=== PATIENT | male | born 1940 | race Caucasian/White ===

== ENCOUNTER → 2017-02-08 | Outpatient (CLI) | payer OTHER ==
[~2017-02-08] MED LIST: ASPEC325 PO; BNV150 PO; CLTP PO; CRS10 PO; EZET10TA63 PO; LRT5 PO; OMEG10007 PO
--- NOTE | 2017-02-09 07:22 | PAP/PSG TECHNICIAN REPORT ---
[facility] Consultant Polysomnogram Report Study name: None Report date: 02/09/2017 Study date: 02/08/2017 Referring Physician: Dr. Sosa Gr Name: BJ FIELD Interpreting Physician: Cris Ayala M.D. Date of : 1940 [facility] Consultant: Sue Willard, PSGT. Sex: Male Age: 76 StudyType: PSG Weight: 220 lbs Height: 76 years, Height 5' 11" Neck Circum:16.5 inches BMI: 30.68 Medications: CARAFATE 1 GM, NEXIUM 40 MG, PARALUENT 75 MG INJECTION, ASPIRIN 81 MG, CALCIUM CARBONATE , VIT-D, COENZYME Q10, MULTIVITAMINS, OMEGA-3 ACIDS, ZETIA10 MG. Patient History 76 YR. OLD MALE IN ROOM 5, PRESENTS TO THE SLEEP LAB FOR A SPLIT NIGHT STUDY. PT. STATES THAT HE HAS ACID REFLUX TO THE POINT OF BURNING IN HIS NECK AND THE ROOF OF HIS MOUTH. DENIST ALSO STATED THAT HE NOTED PAUSES DURING BREATHING.PT. ALSO, SNORES. ESS= 7, NECK =16.5 INCHES Parameters Monitored NPSG: E1-M2, E2-M1, Fp1-M2, Fp2-M1, F3-M2, F4-M2, F4-M1, C3-M2, C4-M2, C4-M1, O1-M2, O2-M2, O2-M1, T3-M2, T4-M1, P3-M2, P4-M1, CHIN1, CHIN2, HR, EKG, Legs, PFLOW, SNOR, FLOW, CFLOW, Tidal Volume, THOR, ABDO, SpO2, PLTH, CPRESS, ETCO2 Wave, ETCO2, pH Sleep Architecture Sleep Stages Time at Lights Off 10:55:32 PM STAGES Time (min.) TST (%) Time at Lights On 5:24:32 AM Wake 101.5 -- Total Recording Time (TRT) 390.00 min. N1 12.0 4 Total Sleep Period (TSP) 334.0 min. N2 223.0 78 Total Sleep Time (TST) 287.5min. N3 0.0 0 Awake Time 101.5 min. REM 52.5 18 Wake after Sleep Onset 46.5 min. Sleep Efficiency (SE) 74 % Sleep Onset Latency (LUIS DANIEL) 55.0 min. Number of Stage 1 Shifts None Awakenings 10 Stage Changes 37 Number of REM periods 4 REM 52.5 18 REM Latency 58.0 min. NREM 235.0 82 Body Position Analysis Supine Right Left Side Prone Vertical Total Sleep Time (min.) 213.9 60.0 64.0 124.00 0.0 2.5 Total Sleep Time (%) 57% 21% 22% 43 0% N/A% Total Sleep Time REM (min.) 34.0 13.5 5.0 None 0.0 0.0 Total Sleep Time NREM (min.) 129.5 46.5 59.0 None 0.0 0.0 Intermittent Wake (min.) 50.4 16.1 32.4 None 0.0 2.5 Total Sleep Period (%) 53% None None None None None Arousals Myoclonus (PLM) * Events Count Index Events Count Index Spontaneous 12 3 Events Awake (PLMW) 5 3.0 Respiratory 6 1.3 Events Asleep w/ Arousal (PLMA) 3 0.6 PLM 3 1 Events Asleep w/o Arousal (PLMS) 98 20.5 Snoring 12 3 Total Asleep 101 21.1 Total 33 7 Total 106 16 Respiratory Analysis * CA OA MA CH H RERA Total Count 5 3 1 0 29 9 38 Index 1.0 0.6 0.2 0 6.1 2 9.8 Mean Duration 21.4 16.9 18.8 0.00 23.5 15.5 21.2 Longest Duration 23.8 19.0 18.8 0.00 18.8 34.6 58.4 Respiratory Event Summary Total Supine ~Supine Right Left Prone REM NREM Apneas Count 9 8 1 0 1 N/A 0 9 Index 1.9 3 0 0.0 0.9 N/A 0 2 Hypopneas (4% Desat) Count 29 19 10 3 7 N/A 4 25 Index 6.1 7.0 5 3.0 6.6 N/A 4.6 6.4 Apneas & All Hypopneas Count 38 27 11 3 8 N/A 4 34 Index 7.9 10 5 3 8 N/A 4.6 8.7 Respiratory Events (Rn Complex Care+All Hyp+RERA) Count 38 34 13 3 10 N/A 4 34 Index 9.8 12 6 3.0 9.4 N/A 5.7 10.7 Respiratory Related Arousal Count 6 34 0 0 0 N/A 0 6 Index 1.3 2 0 0 0 N/A 0 2 Snoring Analysis Supine Right Left Prone REM NREM Total Snore duration 41.0 min Snores count 824 65 475 N/A 79 1,285 1,364 Snore mean duration 1.8 Sec Snores index 302 65 445 N/A 90.3 328.1 284.7 TST with snoring (%) 14.3% Desaturation Event Summary: Minimum %SpO2 Event Count Mean/Min/Max Duration(sec.) Desaturation Index % Time In Bed > 90 46 25.7 / 5.0 / 58.0 7.4 98.3 86 - 90 1 18.5 / 18.5 / 18.5 9.9 1.6 81 - 85 0 N/A 0.0 0.0 76 - 80 0 N/A 0.0 0.0 71 - 75 0 N/A 0.0 0.0 66 - 70 0 N/A 0.0 0.0 61 - 65 0 N/A 0.0 0.0 56 - 60 0 N/A 0.0 0.0 51 - 55 0 N/A 0.0 0.0 < 50 0 N/A 0.0 0.0 Total REM NREM Awake <50% 0.0 min. 0.0 min. 0.0 min. 0.0 min. 51 - 60% 0.0 min. 0.0 min. 0.0 min. 0.0 min. 61 - 70% 0.0 min. 0.0 min. 0.0 min. 0.0 min. 71 - 80% 0.2 min. 0.0 min. 0.0 min. 0.2 min. 81 - 90% 6.1 min. 1.8 min. 3.8 min. 0.5 min. 91 - 100% 372.3 min. 50.6 min. 229.9 min. 91.8 min. Average 93 93 93 94 Minimum SpO2 75 88 85 75 Desaturation Event Index 7.1 4.6 10.7 0.0 # Desat. Events below 89% 8 1 7 0 Time(%) with Saturation below 89% 0.4 0.0 0.2 0.1 Time(min.) with Saturation below 89% 1.4 0.2 0.8 0.4 Time (mins) REM (mins) NREM (mins) % of TST SpO2 Below 90% 23 2 N21 1.1 SpO2 Below 88% 2 0 0 0 Heart Rate Analysis Min (bpm) Max (bpm) Average (bpm) Awake 52 127 59 NREM 50 72 56 REM 49 70 56 Overall 49 72 56 Supplemental O2 Values Minimum O2 level: None Value Start Time End Time [facility] Consultant Comments PSG Study slept in the right, left, and supine positions. No cardiac arrhythmia or PLM's noted. No bruxism noted. Snoring was noted and scored as a 4 on a scale of 1 through 5. (0=no snoring, 5=snoring loud enough to be heard through a closed door or down the marie way) awoke to use the restroom one time during the night. stated, I did not sleep as well as I do when I am in my own bed. The final report will be interpreted and signed by a sleep physician. The completed physician report will then be placed in the patient medical record. Therapy (cm H2O) 0 TIB (min.) 389.0 TST (min.) 287.5 Sleep Onset (min.) 55.0 REM Onset From Sleep (min.) 58.0 Sleep Efficiency % 74 Wakefulness (%) 26 Wakefulness (min.) 101.5 NREM 1 (%) 4 NREM 1 (min.) 12.0 NREM 2 (%) 78 NREM 2 (min.) 223.0 NREM 3 (%) 0 NREM 3 (min.) 0.0 REM (%) 18 REM (min.) 52.5 # Arousals 33 Arousal Index 7 # Snore 1,364 Snore Index 284.7 AHI 7.9 AHI Supine 10 AHI Non-Supine 5 NREM AHI 8.7 REM AHI 4.6 RDI 9.8 # Obstructive Apnea 3 # Central Apnea 5 # Mixed Apnea 1 # Hypopneas 29 RERAs 9 Total Respiratory Events 47 Time Below SpO2 89% (min.) 1.0 Mean NREM SpO2 (%) 93 Mean REM SpO2 (%) 93 Mean Sleep SpO2 (%) 93 Min NREM SpO2 (%) 85 Min REM SpO2 (%) 88 Position Supine (min.) 213.9 Position Non-supine (min.) 124.0 LM Index Sleep 21.1 LM Index NREM 20.7 LM Index REM 22.9 Mean Heart Rate (bpm) 56 Min Heart Rate (bpm) 49
--- NOTE | 2017-02-18 07:51 | POLYSOMNOGRAPH REPORT ---
REFERRING PERSON: Dr. Aurea Ayala. BUTTONHOLE MACHINE OPERATOR: Val Willard. Mr. Peters is a 76-year-old male who presents to the sleep lab for a split night sleep study. He has a history of acid reflux and witnessed apneas. His [place] Sleepiness Scale score on the evening of this study is 7. BMI is 30.68. Following the technical and digital specifications of the [place] [employer] (AASM) a standard diagnostic polysomnogram was performed monitoring EEG, EOG, EMG (chin and leg deviations), oxygen saturation, body position, digital video, respiratory effort and airflow. The sleep Stage and event scoring was based on the AASM Manual for the Scoring of Sleep and Associated Events 2007 edition. Apneas are defined as a drop in the peak thermal sensor excursion by >90% of baseline for at least 10 seconds. Hypopneas were scored using the 4% oxygen desaturation rule (4A-[employer]) and a decrease in the nasal pressure excursions by >30% of baseline for at least 10 seconds. Respiratory effort-related arousal (RERA's) is defined as a sequence of breaths lasting at least 10 seconds characterized by increasing respiratory effort or flattening of the nasal pressure waveform leading to an arousal from sleep when the sequence of breaths does not meet criteria for an apnea or hypopnea. Apnea Hypopnea index (AHI) is defined as the number of apneas and hypopneas occurring in an hour of sleep. Respiratory disturbance index (RDI) is defined as the number of apneas, hypopneas, and RERA's occurring in an hour of sleep. Mr. Graces total sleep period time was 334 minutes. Total sleep time was 387.5 minutes. Sleep efficiency was 74%. Latency to sleep onset was 55 minutes with wake after sleep onset of 46.5 minutes. Total non-REM sleep time was 235 minutes. He spent 4% of that time in N1 sleep, 78% in N2 sleep, and no time in N3 sleep. REM latency was short at 58 minutes. Total REM sleep time was 52.5 minutes or 18% of total sleep time. There were 33 cortical arousals from sleep. Twelve of these arousals were spontaneous, 6 were due to respiratory events, 3 due to periodic limb movements of sleep, and 12 were due to snoring. There were 101 periodic limb movements. Limb movement index was 21.1. Limb movement with arousal index was 0.6. On this sleep study, Mr. Peters had 5 central apneas, 3 obstructive apneas, 1 mixed apnea and 29 hypopnea which appeared to be obstructive. Apnea-hypopnea index was 7.9 consistent with mild sleep apnea. The supine AHI was 10, REM AHI was 4.6. There were 1364 snoring events. Total sleep time with snoring was for 14.3%. Mean saturation was 93 with desaturations less than 89% for only 1.4 minutes of recorded time. There was no cardiac ectopy noted on this study. Heart rates during sleep ranged from a low of 49 beats per minute to a high of 72 beats per minute. IMPRESSION AND PLAN: 76-year-old male with evidence of mild sleep apnea without nocturnal hypoxemia on this sleep study. 1. This patient would likely benefit from positive airway pressure therapy. He should return to the sleep lab for a full night titration and then based on those results be started on equipment at home. A download from his machine can be reviewed in 1 month both to check compliance as well as AHI and further pressure adjustments can occur at that time. 2. Alternatively, this patient could be started on auto titrating CPAP with pressures of 5-15 cm. A download from his machine can be reviewed in 1 month and a set to optimal pressure at that time. 3. Should this patient be unwilling or unable to tolerate CPAP therapy, he should be referred to ear, nose and throat or oral surgery/dental medicine (if appropriate) to discuss alternative treatments for sleep disordered breathing.
== END | disposition home or self-care (01) ==
LOC: C.NEUR 21:00
PROVIDERS: ATTEND Family Medicine
DX: R06.81 Apnea, not elsewhere classified (principal); R06.83 Snoring; G47.10 Hypersomnia, unspecified

== ENCOUNTER → 2017-02-16 | Outpatient (CLI) | payer OTHER ==
--- NOTE | 2017-02-16 10:35 | DIAGNOSTIC IMAGING REPORT ---
DOUBLE CONTRAST UPPER GI SERIES AND SMALL BOWEL FOLLOW-THROUGH CLINICAL HISTORY: Generalized abdominal pain. Heartburn. COMPARISON STUDY: No priors. TECHNIQUE: An abdominal cathead operator radiograph was performed. A standard air contrast upper GI series was then performed. Spot images of the esophagus and stomach were obtained in multiple obliquities with upright and prone. The patient then consumed several of thin barium and a small follow-through was performed. Overhead radiographs and spot compression images were obtained. FINDINGS: The patient swallowed barium without difficulty. The esophagus is structurally normal without evidence of intrinsic or extrinsic mass. The esophageal mucosal pattern is normal. No gastroesophageal reflux was elicited by having the patient performed a Valsalva maneuver. The gastroesophageal junction distends normally. The stomach is normal in configuration and demonstrates normal distensibility. No mass or ulceration is identified. Mild rugal thickening is questioned. The duodenal bulb and sweep are unremarkable. The abdominal cathead operator radiograph shows a nonobstructed abdominal bowel gas pattern. No evidence of intraperitoneal free air is seen. There are no abnormal abdominal calcifications skeletal structures are osteopenic. Mild lumbosacral spondylosis is observed. On the small bowel follow-through, there is normal transit time with contrast identified in the colon at 65 minutes. The small bowel mucosal pattern is normal. There is no evidence of stricture or mass. The distal/terminal ileum are normal in appearance on the spot compression views. Fluoroscopy time: 2.6 minutes. Fluoroscopic images: 18 IMPRESSION: 1. Question mild gastric fold thickening. Correlate clinically for evidence of gastritis. 2. Otherwise unremarkable fluoroscopic upper GI assessment. 3. Normal small bowel follow-through. Electronically signed by: Ramin Baird M.D. 02/16/2017 10:34 AM Dictated Date/Time: 02/16/2017 10:30 AM
== END | disposition home or self-care (01) ==
LOC: C.RAD 08:49
PROVIDERS: ATTEND Family Medicine
DX: R10.13 Epigastric pain (principal)

== ENCOUNTER 2019-03-11 20:16 | Inpatient (IN) ==
[2019-03-11] MEDS ORDERED: HYDROmorphone INJ 0.5 MG/0.5 ML SYR IV STA ×2 (20:36→22:57)
[2019-03-11] MEDS ORDERED: ONDANSETRON INJ 2 MG/ML 2 ML VIAL IV STA (20:38)
[2019-03-11] MEDS ORDERED: SODIUM CHLORIDE 0.9% 500 ML IV SCH (20:45)
[2019-03-11] MEDS: SODIUM CHLORIDE 0.9% 1000ML 1,000 ML IV SCH (21:00)
[2019-03-11 21:13] LABS: Basophils # (auto) 0.01 K/uL (0-0.2); Basophils % (auto) 0.1 %; Eosinophils # (auto) 0.03 K/uL (0-0.5); Eosinophils % (auto) 0.4 %; Hematocrit (blood only) 42.9 % (42-52); Hemoglobin 14.6 g/dL (14.0-18.0); Immature Granulocytes # (auto) 0.01 K/uL (0.00-0.02); Immature Granulocytes % (auto) 0.1 %; Lymphocytes # (auto) 1.61 K/uL (1.2-3.4); Lymphocytes % (auto) 20.2 %; Mean Corpuscular Volume 90.5 fL (80-100); Mean Platelet Volume 10.1 fL (7.4-10.4); Monocytes # (auto) 0.62 K/uL (0.11-0.59); Monocytes % (auto) 7.8 %; Neutrophils # (auto) 5.71 K/uL (1.4-6.5); Neutrophils % (auto) 71.4 %; Platelet Count 216 K/uL (130-400); RDW Coefficient of Variation 13.7 % (11.5-14.5); RDW Standard Deviation 45.4 fL (36.4-46.3); Red Blood Count 4.74 M/uL (4.7-6.1); White Blood Count 7.99 K/uL (4.8-10.8)
[2019-03-11 21:22] LABS: Prothrombin Time 10.7 Seconds (9.0-12.0)
--- NOTE | 2019-03-11 21:49 | Ultrasound Report ---
ABDOMINAL ULTRASOUND, RIGHT UPPER QUADRANT HISTORY: RUQ pain, jaundice. COMPARISON: None. FINDINGS: Pancreas: Obscured by overlying bowel gas. Liver: The liver is echogenic consistent with fatty change. Gallbladder: Completely filled with gallstones. Mild gallbladder wall thickening measuring 4 mm. No p ericholecystic fluid. CBD: 7 mm in diameter. This is normal given the patient's age. Right kidney: No hydronephrosis. IMPRESSION: The gallbladder is completely filled gallstones and there is mild gallbladder wall thickening. This r aises the possibility of developing acute cholecystitis. Electronically signed by: Anthony Rivera M.D. 03/11/2019 9:47 PM
[2019-03-11 22:07] LABS: Albumin Level 3.9 gm/dl (3.4-5.0); BUN Creatinine Ratio 10.3 (10-20); Bilirubin,Total 6.3 mg/dl (0.2-1); Calcium 9.4 mg/dl (8.5-10.1); Creatinine Clr Calc Pharmacy 63.8 ml/min; Est GFR (African American) 69.3; Est GFR (Non-African American) 59.8; Globulin 3.9 gm/dl (2.5-4.0); Total Protein 7.8 gm/dl (6.4-8.2)
[2019-03-11] MEDS ORDERED: PIPERACILLIN/TAZOBACTAM 4.5 GM/120 ML BAG IV ONE (22:10)
[2019-03-11] MEDS ORDERED: PIPERACILL/TAZOBAC CONSULT ACTIVE PRN (22:10)
[2019-03-11] MEDS ORDERED: IOVERSOL 100ml IV PRN (22:34)
--- NOTE | 2019-03-11 22:51 | CT Scan Report ---
ABDOMEN AND PELVIS CT WITH IV CONTRAST CT DOSE: 660.01 mGy.cm HISTORY: epigastric pain TECHNIQUE: Multiaxial CT images of the abdomen and pelvis were performed following the use of intrave nous contrast. A dose lowering technique was utilized adhering to the principles of ALARA. COMPARISON STUDY: Abdominal ultrasound 03/11/2019. FINDINGS: Calcified right hilar lymph nodes. Calcified granuloma within the lingula. Mild dependent c hanges seen at the lung bases. No pneumoperitoneum. No pneumatosis. No suspicious lytic or blastic os seous lesions. A 5 mm hypodense lesion within the left hepatic lobe. This is too small to characteriz e. The main portal vein is patent. Mild central intrahepatic bile duct dilatation. The spleen is unre markable. Normal adrenal glands and pancreas. A 3 cm cyst within the upper pole of the left kidney. T here is also a 1 cm hypodense lesion within the left kidney. This also favors a cyst. No hydronephros is. A left circumaortic renal vein. No retroperitoneal lymphadenopathy. Normal bladder. No bowel wall thickening or obstruction. Normal appendix. No retroperitoneal lymphadenopathy. Mild inflammatory ch trung surrounding the gallbladder and common bile duct. There is mild enhancement within the wall of t he cystic duct. Multiple stones within the gallbladder. There is also a stone within the ampulla best seen on image 191. This measures 4 mm. The common bile duct is at the upper limits of normal for age measuring 7 mm. The cystic duct is mildly distended. The mass of the stone within the cystic duct. H owever, this is difficult to assess due to the motion artifact at this location. IMPRESSION: 1. Multiple gallstones with mild inflammatory change surrounding the gallbladder and common bile duct . This is consistent with acute cholecystitis. 2. There is a 4 mm stone within the ampulla likely resulting in the mild intrahepatic bile duct dilat ation. 3. There is mild enhancement versus small stones within the cystic duct. 4. No bowel wall thickening or obstruction. 5. Normal appendix. Electronically signed by: Anthony Rivera M.D. 03/11/2019 10:48 PM
--- NOTE | 2019-03-11 23:36 | Emergency Department Note ---
Entered by Ramin Teran acting as a scribe for Paris Cedeño MD History of Present Illness General Chief complaint: Abdominal Pain Stated complaint: ABDOMINAL PAIN, CRAMPING, BLOATING Source: patient History of Present Illness Provider complaint: Abdominal pain Onset (ago): day(s) 2 Location: abdomen Maximum Pain Intensity: 8 Current Pain Intensity: 8 Associated symptoms: + denies other symptoms (weight loss, vomiting, and diarrhea) and + other (nausea and gas) The patient is a 78 year old male who presents to the Emergency Room with complaints of abdominal pain that began 2 days ago. The patient states he has nausea and has a lot of gas. He notes that at that time, he was able to get it to go away by drinking tea. 1 day ago, he states these symptoms returned and were really bad and would not subside. He rates his overall pain as an 8/10 and adds that the pain is all over his stomach and radiates into his chest. The patient also complains of dark urine but reports not drinking a lot of fluids lately. The patient denies weight loss, vomiting, and diarrhea. The patient also notes that he does not have kidney problems and has no history of abdominal surgeries. Home Medications Home Medications Medication Instructions Recorded Confirmed Type alirocumab [Praluent Pen] 0 mg SUBCUT DIRECTED 03/11/19 03/11/19 History aspirin [Aspirin Low Dose] 81 mg PO DAILY 03/11/19 03/11/19 History calcium carbonate [Calcium 500] 500 mg PO BID 03/11/19 03/11/19 History cholecalciferol (vitamin D3) 1,000 unit PO DAILY 03/11/19 03/11/19 History [Vitamin D3] coenzyme Q10 [Co Q-10] 200 mg PO DAILY 03/11/19 03/11/19 History ezetimibe 10 mg PO DAILY 03/11/19 03/11/19 History multivitamin 1 tab PO DAILY 03/11/19 03/11/19 History pantoprazole 20 mg PO DAILY 03/11/19 03/11/19 History ranitidine HCl 150 mg PO DAILY 03/11/19 03/11/19 History rosuvastatin [Crestor] 10 mg PO Q OTHER DAY 03/11/19 03/11/19 History Allergies Allergy/AdvReac Type Severity Reaction Status Date / Time niacin Allergy Mild LUMPS ALL Verified 03/11/19 21:23 OVER WITH HIGH DOSES Lapkqii-Xaw-Bws Reductase Allergy Unknown MUSCLE Verified 03/11/19 21:23 Inhibitor ACHES WHEN TAKING FOR LONG TIME Past Med/Surg History Medical History BPH (benign prostatic hyperplasia) Dyslipidemia GERD (gastroesophageal reflux disease) IFG (impaired fasting glucose) ELIEL (obstructive sleep apnea) Surgical History Hx of tonsillectomy Social History Preferred Language: [place] Communication Ability: Effective [employer]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 and A total of 10 systems reviewed and were otherwise negative Physical Exam Vital Signs Vital Signs - 24 hr 03/12/19 01:46 03/12/19 08:50 03/12/19 15:10 Temperature 36.7 C 36.9 C Temperature Source Oral Oral Pulse Rate 62 Pulse Rate [Apical] Pulse Rate [Finger] 59 L 76 Pulse Rate [Right Finger] Pulse Rhythm [Apical] Pulse Rhythm [Finger] Regular Regular Pulse Strength [Apical] Pulse Strength [Finger] Normal Normal Respiratory Rate 16 18 Respiratory Effort / Characteristics Non-Labored Spontaneous Non-Labored Respiratory Depth Normal Normal Respiratory Pattern Regular Regular Blood Pressure [Left Arm] 149/79 H 160/83 H Blood Pressure [Right Arm] Blood Pressure Mean [Left Arm] 102 108 Blood Pressure Mean [Right Arm] Blood Pressure Position [Left Arm] Sitting Semi-fowlers Blood Pressure Position [Right Arm] Pulse Oximetry 97 98 Oxygen Delivery Method Room Air Room Air Oxygen Flow Rate 03/12/19 17:01 03/12/19 17:10 03/12/19 17:20 Temperature 36.5 C Temperature Source Temporal Artery Scan Pulse Rate Pulse Rate [Apical] 67 60 59 L Pulse Rate [Finger] Pulse Rate [Right Finger] Pulse Rhythm [Apical] Regular Regular Regular Pulse Rhythm [Finger] Pulse Strength [Apical] Pulse Strength [Finger] Respiratory Rate 16 17 14 Respiratory Effort / Characteristics Non-Labored Spontaneous Non-Labored Spontaneous Non-Labored Spontaneous Respiratory Depth Normal Normal Normal Respiratory Pattern Regular Regular Regular Blood Pressure [Left Arm] 160/91 H 172/79 H 161/82 H Blood Pressure [Right Arm] Blood Pressure Mean [Left Arm] 114 110 108 Blood Pressure Mean [Right Arm] Blood Pressure Position [Left Arm] Lying Lying Lying Blood Pressure Position [Right Arm] Pulse Oximetry 97 100 100 Oxygen Delivery Method Oxymask Oxymask Oxymask Oxygen Flow Rate 10 10 10 03/12/19 17:30 03/12/19 17:40 03/12/19 18:00 Temperature 36.3 C L 36.6 C Temperature Source Temporal Artery Scan Oral Pulse Rate Pulse Rate [Apical] 56 L 58 L 54 L Pulse Rate [Finger] Pulse Rate [Right Finger] Pulse Rhythm [Apical] Regular Regular Pulse Rhythm [Finger] Pulse Strength [Apical] Pulse Strength [Finger] Respiratory Rate 21 18 20 Respiratory Effort / Characteristics Non-Labored Spontaneous Non-Labored Spontaneous Respiratory Depth Normal Normal Respiratory Pattern Regular Regular Blood Pressure [Left Arm] 170/78 H 152/87 H Blood Pressure [Right Arm] 155/52 H Blood Pressure Mean [Left Arm] 108 108 Blood Pressure Mean [Right Arm] 86 Blood Pressure Position [Left Arm] Lying Lying Blood Pressure Position [Right Arm] Lying Pulse Oximetry 97 97 96 Oxygen Delivery Method Room Air Room Air Room Air Oxygen Flow Rate 03/12/19 18:38 03/12/19 19:22 03/12/19 19:30 Temperature 36.5 C 36.4 C L 36.5 C Temperature Source Oral Oral Oral Pulse Rate Pulse Rate [Apical] 55 L 84 55 L Pulse Rate [Finger] Pulse Rate [Right Finger] Pulse Rhythm [Apical] Regular Pulse Rhythm [Finger] Pulse Strength [Apical] Normal Pulse Strength [Finger] Respiratory Rate 17 18 20 Respiratory Effort / Characteristics Non-Labored Respiratory Depth Normal Respiratory Pattern Regular Blood Pressure [Left Arm] 181/73 H Blood Pressure [Right Arm] 165/80 H 165/80 H Blood Pressure Mean [Left Arm] 109 Blood Pressure Mean [Right Arm] 108 108 Blood Pressure Position [Left Arm] Lying Blood Pressure Position [Right Arm] Lying Pulse Oximetry 98 92 98 Oxygen Delivery Method Room Air Room Air Oxygen Flow Rate 03/12/19 20:00 03/12/19 20:43 03/13/19 00:00 Temperature 36.6 C 36.5 C Temperature Source Oral Oral Pulse Rate 68 Pulse Rate [Apical] 67 Pulse Rate [Finger] Pulse Rate [Right Finger] 58 L Pulse Rhythm [Apical] Pulse Rhythm [Finger] Pulse Strength [Apical] Pulse Strength [Finger] Respiratory Rate 20 20 Respiratory Effort / Characteristics Respiratory Depth Respiratory Pattern Blood Pressure [Left Arm] 166/75 H Blood Pressure [Right Arm] 160/58 H Blood Pressure Mean [Left Arm] 105 Blood Pressure Mean [Right Arm] 92 Blood Pressure Position [Left Arm] Lying Blood Pressure Position [Right Arm] Pulse Oximetry 98 96 Oxygen Delivery Method Room Air Oxygen Flow Rate Vital signs reviewed. General: Well-appearing elderly male, in no significant distress. HEENT:Sscleral icterus, PERRLA, neck supple. Atraumatic. Cardiovascular: Regular rate and rhythm, no extra sounds. Pulmonary: Clear to auscultation bilaterally, normal work of breathing. Abdomen: Soft, nondistended, positive bowel sounds. Tenderness to palpation to the epigastric region. Musculoskeletal: Atraumatic, no peripheral edema. Neurologic: Patient awake alert and oriented x 3, full strength in all 4 extremities. Cranial nerves 2 through 12 grossly intact. Skin: Warm, dry, no rash. Jaundiced. Course 2033: The patient was evaluated in room C11. A complete history and physical exam was performed. 2210: The patient is going for a CT. 2310:I updated the patient about his stone in bile duct. 2318:I reviewed the patient's case with Dr. Dey-Gastroenterology. 2320: I reviewed the patient's case with [facility]. He will evaluate the patient for further management. Consultations Consultation #1: 2318: I reviewed the patient's case with Dr. Dey- Gastroenterology. Time: 23:18 Consultation #2: 2320: I reviewed the patient's case with Dr[facility]. He will evaluate the patient for further management. Time: 23:20 Administered Medications Sodium Chloride (Nss 1000ml) 1,000 mls @ 125 mls/hr IV .Q8H MAGDA Stop: 04/10/19 20:44 Last Admin: 03/12/19 19:36 Dose: 125 mls/hr Documented by: [id number] Admin: 03/12/19 19:32 Dose: Not Given Documented by: [id number] Infusion: 03/12/19 15:47 Dose: 0 mls/hr Documented by: [id number] Infusion: 03/12/19 14:54 Dose: 125 mls/hr Documented by: [id number] Infusion: 03/12/19 07:50 Dose: 125 mls/hr Documented by: [id number] Admin: 03/12/19 06:06 Dose: Not Given Documented by: [id number] Infusion: 03/12/19 03:47 Dose: 0 mls/hr Documented by: [id number] Infusion: 03/12/19 01:57 Dose: 125 mls/hr Documented by: [id number] Infusion: 03/12/19 01:21 Dose: 0 mls/hr Documented by: [id number] Admin: 03/11/19 21:00 Dose: 125 mls/hr Documented by: [id number] Famotidine 20 mg/ Syringe 5 mls @ 2.5 mls/min IV BID MAGDA Stop: 04/11/19 08:59 Last Admin: 03/12/19 20:53 Dose: 2.5 mls/min Documented by: [id number] Admin: 03/12/19 08:56 Dose: 2.5 mls/min Documented by: [id number] Piperacillin Sod/Tazobactam (Sod 3.375 gm/ Dextrose) 115 mls @ 28.75 mls/hr IV Q8H MAGDA; Protocol Stop: 03/22/19 03:59 Last Infusion: 03/13/19 00:01 Dose: 0 mls/hr Documented by: [id number] Admin: 03/12/19 19:36 Dose: 28.8 mls/hr Documented by: [id number] Infusion: 03/12/19 17:12 Dose: 0 mls/hr Documented by: [id number] Admin: 03/12/19 11:57 Dose: 28.8 mls/hr Documented by: [id number] Infusion: 03/12/19 07:50 Dose: 0 mls/hr Documented by: [id number] Admin: 03/12/19 03:47 Dose: 28.8 mls/hr Documented by: [id number] Morphine Sulfate (Morphine Sulfate) 3 mg IV Q3H PRN PRN Reason: Pain Stop: 03/26/19 01:16 Last Admin: 03/12/19 20:12 Dose: 3 mg Documented by: [id number] Discontinued Medications Hydromorphone HCl (Dilaudid) 0.5 mg IV NOW STA Stop: 03/11/19 20:37 Last Admin: 03/11/19 21:00 Dose: 0.5 mg Documented by: [id number] Hydromorphone HCl (Dilaudid) 0.5 mg IV NOW STA Stop: 03/11/19 22:58 Last Admin: 03/11/19 23:07 Dose: 0.5 mg Documented by: [id number] Sodium Chloride (Nss) 500 mls @ 999 mls/hr IV .Q31M MAGDA Stop: 03/11/19 21:15 Last Infusion: 03/11/19 21:35 Dose: 0 mls/hr Documented by: [id number] Admin: 03/11/19 21:00 Dose: 999 mls/hr Documented by: [id number] Piperacillin Sod/Tazobactam Sod (Zosyn) 4.5 gm in 120 mls @ 240 mls/hr IV NOW ONE Stop: 03/11/19 22:39 Last Infusion: 03/11/19 23:38 Dose: 0 mls/hr Documented by: [id number] Admin: 03/11/19 23:07 Dose: 240 mls/hr Documented by: [id number] Indomethacin (Indocin) 100 mg IL ONE ONE Stop: 03/12/19 15:01 Last Admin: 03/12/19 16:46 Dose: 100 mg Documented by: [id number] Ioversol (Optiray 320 100ml) 100 ml IV ONCE PRN PRN Reason: Interaction Checking Stop: 03/15/19 22:33 Last Admin: 03/11/19 22:35 Dose: 94 ml Documented by: [id number] Ondansetron HCl (Zofran) 4 mg IV NOW STA Stop: 03/11/19 20:39 Last Admin: 03/11/19 21:00 Dose: 4 mg Documented by: [id number] Medical Decision Making Differential Diagnosis Differential diagnosis: Etiologies such as appendicitis, diverticulitis, PUD, biliary pathology, UTI, p ancreatitis, obstruction, mesenteric ischemia, aortic pathology, infections, inflammatory bowel disease, renal colic, as well as others were entertained. Medical Records Attestation: I reviewed the patient's medical records. Home Medications Current Medication List: was personally reviewed by me Laboratory Data Attestation: I reviewed the patient's lab results. Result diagrams: 03/12/19 05:16 03/12/19 05:16 Lab Results 03/11/19 03/11/19 03/11/19 Range/Units 21:01 21:01 21:01 WBC 7.99 (4.8-10.8) K/uL RBC 4.74 (4.7-6.1) M/uL Hgb 14.6 (14.0-18.0) g/dL Hct 42.9 (42-52) % MCV 90.5 (80-100) fL MCH 30.8 (25-34) pg MCHC 34.0 (32-36) g/dL RDW Std Deviation 45.4 (36.4-46.3) fL RDW Coeff of Idris 13.7 (11.5-14.5) % Plt Count 216 (130-400) K/uL MPV 10.1 (7.4-10.4) fL Immature Gran % (Auto) 0.1 % Neut % (Auto) 71.4 % Lymph % (Auto) 20.2 % [place] % (Auto) 7.8 % Eos % (Auto) 0.4 % Baso % (Auto) 0.1 % Immature Gran # (Auto) 0.01 (0.00-0.02) K/uL Neut # (Auto) 5.71 (1.4-6.5) K/uL Lymph # (Auto) 1.61 (1.2-3.4) K/uL [place] # (Auto) 0.62 H (0.11-0.59) K/uL Eos # (Auto) 0.03 (0-0.5) K/uL Baso # (Auto) 0.01 (0-0.2) K/uL PT 10.7 (9.0-12.0) Seconds INR 1.0 (0.9-1.1) Sodium 138 (136-145) mmol/L Potassium 4.0 (3.5-5.1) mmol/L Chloride 105 (98-107) mmol/L Carbon Dioxide 24 (21-32) mmol/L Anion Gap 9.0 (3-11) BUN 12 (7-18) mg/dl Creatinine 1.17 (0.6-1.4) mg/dl Est Cr Clr Drug Dosing 63.8 ml/min Est GFR ( Amer) 69.3 Est GFR (Non-Af Amer) 59.8 BUN/Creatinine Ratio 10.3 (10-20) Glucose 142 H (70-99) mg/dl Estimat Average Glucose mg/dl Hemoglobin A1c (4.5-5.6) % Calcium 9.4 (8.5-10.1) mg/dl Magnesium (1.8-2.4) mg/dl Total Bilirubin 6.3 H (0.2-1) mg/dl Direct Bilirubin (0-0.2) mg/dl AST 90 H (15-37) U/L ALT 212 H (12-78) U/L Alkaline Phosphatase 267 H (45-117) U/L Total Protein 7.8 (6.4-8.2) gm/dl Albumin 3.9 (3.4-5.0) gm/dl Globulin 3.9 (2.5-4.0) gm/dl Albumin/Globulin Ratio 1.0 (0.9-2) Lipase 70 L (73-393) U/L Urine Color Urine Appearance (Clear) Urine pH (4.5-7.5) Ur Specific [place] (1.000-1.030) Urine Protein (Negative) Urine Glucose (UA) (Negative) Urine Ketones (Negative) Urine Blood (Negative) Urine Nitrite (Negative) Urine Bilirubin (Negative) Urine Urobilinogen (Negative) Ur Leukocyte Esterase (Negative) 03/12/19 03/12/19 03/12/19 Range/Units 05:16 05:16 05:16 WBC 7.49 (4.8-10.8) K/uL RBC 4.70 (4.7-6.1) M/uL Hgb 14.5 (14.0-18.0) g/dL Hct 43.4 (42-52) % MCV 92.3 (80-100) fL MCH 30.9 (25-34) pg MCHC 33.4 (32-36) g/dL RDW Std Deviation 46.9 H (36.4-46.3) fL RDW Coeff of Idris 13.9 (11.5-14.5) % Plt Count 218 (130-400) K/uL MPV 10.1 (7.4-10.4) fL Immature Gran % (Auto) 0.1 % Neut % (Auto) 58.0 % Lymph % (Auto) 33.0 % [place] % (Auto) 8.1 % Eos % (Auto) 0.5 % Baso % (Auto) 0.3 % Immature Gran # (Auto) 0.01 (0.00-0.02) K/uL Neut # (Auto) 4.34 (1.4-6.5) K/uL Lymph # (Auto) 2.47 (1.2-3.4) K/uL [place] # (Auto) 0.61 H (0.11-0.59) K/uL Eos # (Auto) 0.04 (0-0.5) K/uL Baso # (Auto) 0.02 (0-0.2) K/uL PT (9.0-12.0) Seconds INR (0.9-1.1) Sodium 139 (136-145) mmol/L Potassium 3.9 (3.5-5.1) mmol/L Chloride 107 (98-107) mmol/L Carbon Dioxide 25 (21-32) mmol/L Anion Gap 7.0 (3-11) BUN 9 (7-18) mg/dl Creatinine 1.02 (0.6-1.4) mg/dl Est Cr Clr Drug Dosing 73.3 ml/min Est GFR ( Amer) 81.8 Est GFR (Non-Af Amer) 70.6 BUN/Creatinine Ratio 9.1 L (10-20) Glucose 109 H (70-99) mg/dl Estimat Average Glucose mg/dl Hemoglobin A1c (4.5-5.6) % Calcium 8.5 (8.5-10.1) mg/dl Magnesium 2.2 (1.8-2.4) mg/dl Total Bilirubin 6.2 H (0.2-1) mg/dl Direct Bilirubin 3.8 H (0-0.2) mg/dl AST 78 H (15-37) U/L ALT 185 H (12-78) U/L Alkaline Phosphatase 240 H (45-117) U/L Total Protein 7.1 (6.4-8.2) gm/dl Albumin 3.3 L (3.4-5.0) gm/dl Globulin (2.5-4.0) gm/dl Albumin/Globulin Ratio (0.9-2) Lipase (73-393) U/L Urine Color Urine Appearance (Clear) Urine pH (4.5-7.5) Ur Specific [place] (1.000-1.030) Urine Protein (Negative) Urine Glucose (UA) (Negative) Urine Ketones (Negative) Urine Blood (Negative) Urine Nitrite (Negative) Urine Bilirubin (Negative) Urine Urobilinogen (Negative) Ur Leukocyte Esterase (Negative) 03/12/19 03/12/19 Range/Units 05:16 Unknown WBC (4.8-10.8) K/uL RBC (4.7-6.1) M/uL Hgb (14.0-18.0) g/dL Hct (42-52) % MCV (80-100) fL MCH (25-34) pg MCHC (32-36) g/dL RDW Std Deviation (36.4-46.3) fL RDW Coeff of Idris (11.5-14.5) % Plt Count (130-400) K/uL MPV (7.4-10.4) fL Immature Gran % (Auto) % Neut % (Auto) % Lymph % (Auto) % [place] % (Auto) % Eos % (Auto) % Baso % (Auto) % Immature Gran # (Auto) (0.00-0.02) K/uL Neut # (Auto) (1.4-6.5) K/uL Lymph # (Auto) (1.2-3.4) K/uL [place] # (Auto) (0.11-0.59) K/uL Eos # (Auto) (0-0.5) K/uL Baso # (Auto) (0-0.2) K/uL PT (9.0-12.0) Seconds INR (0.9-1.1) Sodium (136-145) mmol/L Potassium (3.5-5.1) mmol/L Chloride (98-107) mmol/L Carbon Dioxide (21-32) mmol/L Anion Gap (3-11) BUN (7-18) mg/dl Creatinine (0.6-1.4) mg/dl Est Cr Clr Drug Dosing ml/min Est GFR ( Amer) Est GFR (Non-Af Amer) BUN/Creatinine Ratio (10-20) Glucose (70-99) mg/dl Estimat Average Glucose 123 mg/dl Hemoglobin A1c 5.9 H (4.5-5.6) % Calcium (8.5-10.1) mg/dl Magnesium (1.8-2.4) mg/dl Total Bilirubin (0.2-1) mg/dl Direct Bilirubin (0-0.2) mg/dl AST (15-37) U/L ALT (12-78) U/L Alkaline Phosphatase (45-117) U/L Total Protein (6.4-8.2) gm/dl Albumin (3.4-5.0) gm/dl Globulin (2.5-4.0) gm/dl Albumin/Globulin Ratio (0.9-2) Lipase (73-393) U/L Urine Color Dark Yellow Urine Appearance Clear (Clear) Urine pH 5.0 (4.5-7.5) Ur Specific [place] 1.039 H (1.000-1.030) Urine Protein Negative (Negative) Urine Glucose (UA) Negative (Negative) Urine Ketones Trace H (Negative) Urine Blood Negative (Negative) Urine Nitrite Negative (Negative) Urine Bilirubin 2+ H (Negative) Urine Urobilinogen Negative (Negative) Ur Leukocyte Esterase Negative (Negative) Imaging Data Radiologist's Impression: Radiology results as stated below per my review and the radiologist's interpretation: ABDOMINAL ULTRASOUND, RIGHT UPPER QUADRANT HISTORY: RUQ pain, jaundice. COMPARISON: None. FINDINGS: Pancreas: Obscured by overlying bowel gas. Liver: The liver is echogenic consistent with fatty change. Gallbladder: Completely filled with gallstones. Mild gallbladder wall thickening measuring 4 mm. No pericholecystic fluid. CBD: 7 mm in diameter. This is normal given the patient's age. Right kidney: No hydronephrosis. IMPRESSION: The gallbladder is completely filled gallstones and there is mild gallbladder wall thickening. This raises the possibility of developing acute cholecystitis. Electronically signed by: Anthony Rivera M.D. 03/11/2019 9:47 PM Blood Pressure Blood Pressure Findings: Elevated blood pressure Blood Pressure Disposition: further management by hospitalist RUTHANN Negrete This patient was evaluated and appeared to be in no significant distress. IV access was obtained and laboratory work was drawn. Patient was hydrated with normal saline solution. Patient is noted to be afebrile. Laboratory work reveals a bilirubin of 6.3. Ultrasound the right upper quadrant reveals significant cholelithiasis. CT scan of the abdomen pelvis was performed and reveals a 4 mm obstructing stone at the ampulla with evidence of developing cholecystitis. Patient was medicated with IV Zosyn. Case was discussed with Dr. Dey of gastroenterology. The hospitalist service, Dr. Rodriguez of who was consulted for admission. Patient and were made aware of the plan and agree. Impression & Plan Biliary calculus with acute cholecystitis, Hyperbilirubinemia Discharge Plan Visit Data *Final* Discharge Date/Time: 03/12/19 00:39 Chief Complaint: Abdominal Pain Stated Complaint: ABDOMINAL PAIN, CRAMPING, BLOATING ED Provider: Paris Cedeño Discharge Problem: Biliary calculus with acute cholecystitis, Hyperbilirubinemia Patient Disposition: Admitted As Inpatient Discharge Instructions Interventions: ED Discharge Assessment Last Done: 03/12/19 00:39 Discharge Problem: Biliary calculus with acute cholecystitis Qualifiers: Biliary obstruction: with biliary obstruction Qualified Code(s): K80.01 - Calculus of gallbladder with acute cholecystitis with obstruction The scribe's documentation has been prepared under my direction and personally reviewed by me in its entirety. I confirm that the note above accurately reflects all work, treatment, procedures, and medical decision making performed by me.
--- NOTE | 2019-03-12 00:03 | History & Physical Report ---
Date of Service March 12, 2019 Assessment & Plan (1) Acute cholecystitis: Presented with abdominal pain and imaging shows gall stones and possible acute cholecystitis starting on iv zosyn, npo, iv fluids, iv pain meds prn and iv antiemetics prn Surgical consult Present on Admission?: Yes (2) Cholangitis: presented with abdominal pain found to have gall stones and cholecystitis one g4mm gall stone at ampulla elevated birubin and lfts starting on zosyn, npo, fluids GI notifed by ER possible ercp in am will follow lft's Currently afebrile and hemodynamics stable Present on Admission?: Yes (3) Dyslipidemia: continue home meds crestor and ezetimibe Present on Admission?: Yes (4) GERD (gastroesophageal reflux disease): on protonix and zantac Present on Admission?: Yes (5) IFG (impaired fasting glucose): currently npo will follow hba1c levels Present on Admission?: Yes History of Present Illness Chief Complaint: Abdominal pain Primary Care Provider: Milena Carr MD 78M with PMH significant for Hyperlipidemia, Impaired fasting glucose,GERD, ELIEL,BPH,presents with abdominal pain. Patient had some pain yesterday. But Today after lunch couple of hours later around 4pm again started to have abdominal pain mostly in upper abdomen radiating to the chest region, severe in nature, associated with nausea.Received pain meds in ER and currently pain is under control. Denies fever/chills. No Sob. No cough. Patient noticed his urine turning dark since yesterday.Currently resting comfortably and hemodynamically stable. Allergies Allergy/AdvReac Type Severity Reaction Status Date / Time niacin Allergy Mild LUMPS ALL Verified 03/11/19 21:23 OVER WITH HIGH DOSES Vwztjke-Kfa-Uci Reductase Allergy Unknown MUSCLE Verified 03/11/19 21:23 Inhibitor ACHES WHEN TAKING FOR LONG TIME Home Medications Home Medications Medication Instructions Recorded Confirmed Type alirocumab [Praluent Pen] 0 mg SUBCUT DIRECTED 03/11/19 03/11/19 History aspirin [Aspirin Low Dose] 81 mg PO DAILY 03/11/19 03/11/19 History calcium carbonate [Calcium 500] 500 mg PO BID 03/11/19 03/11/19 History cholecalciferol (vitamin D3) 1,000 unit PO DAILY 03/11/19 03/11/19 History [Vitamin D3] coenzyme Q10 [Co Q-10] 200 mg PO DAILY 03/11/19 03/11/19 History ezetimibe 10 mg PO DAILY 03/11/19 03/11/19 History multivitamin 1 tab PO DAILY 03/11/19 03/11/19 History pantoprazole 20 mg PO DAILY 03/11/19 03/11/19 History ranitidine HCl 150 mg PO DAILY 03/11/19 03/11/19 History rosuvastatin [Crestor] 10 mg PO Q OTHER DAY 03/11/19 03/11/19 History Past Med/Surg History Medical History BPH (benign prostatic hyperplasia) Dyslipidemia GERD (gastroesophageal reflux disease) IFG (impaired fasting glucose) No pertinent past medical history ELIEL (obstructive sleep apnea) Surgical History Hx of tonsillectomy Social History Preferred Language: Azeri Communication Ability: Effective Clerical Support Required: No Beliefs That Will Affect Care: None Current Living Situation: Spouse Feels Safe at Home: Yes Safety Concerns: Feels Safe At This Time Smoking Status: Never smoker Hx Alcohol Use: No Hx Substance Use: No Immunizations: TDAP 02/18/2012 PNEUMOCOCCAL VACCINE 05/06/2015 Review of Systems Review of Systems: Constitutional- no fever; no weight loss Eyes- no acute visual changes ENT- no sinus drainage; no pharyngitis Pulmonary- no cough, no wheezing, no shortness of breath Cardiac- no chest pain, no dependent edema GI- HAS ABDOMINAL PAIN.no nausea, no vomiting, no diarrhea, no melena, no hematochezia - no dysuria, no hematuria Derm- no rashes Hematologic- no unusual bruising, no unusual bleeding Neuro- no headaches Physical Exam Physical Exam: General- alert and oriented Head- atraumatic Eyes- PERRL, EOMI, icterus present ENT- oropharynx clear Neck- supple, no JVD, no adenopathy,carotids +2/2, no bruits appreciated Lungs- clear to auscultation and percussion Heart- regular rhythm; no murmur, no gallop, no rub appreciated Abdomen- normal bowel sounds, soft, mild diffuse discomfort , no masses Extremities- no pretibial edema, no erythema Neuro- alert, oriented x 3; PERRL, EOMI; no facial palsy; no dysarthria;non focal Skin- warm & dry Results & Data Vital Signs (Past 12 Hours) Vital Signs Temp Pulse Pulse Resp BP BP Pulse Ox 03/11/19 23:44 79 18 154/76 H 95 03/11/19 23:07 77 18 142/68 H 98 03/11/19 21:50 72 18 151/80 H 97 03/11/19 21:10 98 03/11/19 20:21 36.5 C 67 18 183/75 H 97 Laboratory Results Laboratory Results - last 24 hr 03/11/19 03/11/19 03/11/19 21:01 21:01 21:01 WBC 7.99 RBC 4.74 Hgb 14.6 Hct 42.9 MCV 90.5 MCH 30.8 MCHC 34.0 RDW Std Deviation 45.4 RDW Coeff of Idris 13.7 Plt Count 216 MPV 10.1 Immature Gran % (Auto) 0.1 Neut % (Auto) 71.4 Lymph % (Auto) 20.2 [place] % (Auto) 7.8 Eos % (Auto) 0.4 Baso % (Auto) 0.1 Immature Gran # (Auto) 0.01 Neut # (Auto) 5.71 Lymph # (Auto) 1.61 [place] # (Auto) 0.62 H Eos # (Auto) 0.03 Baso # (Auto) 0.01 PT 10.7 INR 1.0 Sodium 138 Potassium 4.0 Chloride 105 Carbon Dioxide 24 Anion Gap 9.0 BUN 12 Creatinine 1.17 Est Cr Clr Drug Dosing 63.8 Est GFR ( Amer) 69.3 Est GFR (Non-Af Amer) 59.8 BUN/Creatinine Ratio 10.3 Glucose 142 H Calcium 9.4 Total Bilirubin 6.3 H AST 90 H ALT 212 H Alkaline Phosphatase 267 H Total Protein 7.8 Albumin 3.9 Globulin 3.9 Albumin/Globulin Ratio 1.0 Lipase [address] ABD/PELVIS: 1. Multiple gallstones with mild inflammatory change surrounding the gallbladder and common bile duct. This is consistent with acute cholecystitis. 2. There is a 4 mm stone within the ampulla likely resulting in the mild intrahepatic bile duct dilatation. 3. There is mild enhancement versus small stones within the cystic duct. 4. No bowel wall thickening or obstruction. 5. Normal appendix. GALL BLADDER US; The gallbladder is completely filled gallstones and there is mild gallbladder wall thickening. This raises the possibility of developing acute cholecystitis. Code Status & VTE Plan Code Status FULL CODE
[2019-03-12] MEDS ORDERED: ONDANSETRON INJ 2 MG/ML 2 ML VIAL IV PRN ×2 (01:17→15:33)
[2019-03-12] MEDS ORDERED: NITROGLYCERIN SL 0.4 MG/TAB TAB SL PRN (01:17)
[2019-03-12] MEDS ORDERED: ACETAMINOPHEN 325 MG TAB PO PRN (01:17)
[2019-03-12] MEDS: PIPERACILLIN/TAZOBACTAM 3.375 GM in DEXTROSE 5% 100 ML IV SCH ×3 (03:47→19:36)
[2019-03-12 05:49] LABS: Basophils # (auto) 0.02 K/uL (0-0.2); Basophils % (auto) 0.3 %; Eosinophils # (auto) 0.04 K/uL (0-0.5); Eosinophils % (auto) 0.5 %; Hematocrit (blood only) 43.4 % (42-52); Hemoglobin 14.5 g/dL (14.0-18.0); Immature Granulocytes # (auto) 0.01 K/uL (0.00-0.02); Immature Granulocytes % (auto) 0.1 %; Lymphocytes # (auto) 2.47 K/uL (1.2-3.4); Mean Corpuscular Hgb Conc 33.4 g/dL (32-36); Mean Corpuscular Volume 92.3 fL (80-100); Mean Platelet Volume 10.1 fL (7.4-10.4); Monocytes # (auto) 0.61 K/uL (0.11-0.59); Monocytes % (auto) 8.1 %; Neutrophils # (auto) 4.34 K/uL (1.4-6.5); Platelet Count 218 K/uL (130-400); RDW Coefficient of Variation 13.9 % (11.5-14.5); RDW Standard Deviation 46.9 fL (36.4-46.3); White Blood Count 7.49 K/uL (4.8-10.8)
[2019-03-12] MEDS: SODIUM CHLORIDE 0.9% 1000ML 1,000 ML IV SCH ×3 (06:06→19:36)
--- NOTE | 2019-03-12 06:20 | XRay Report ---
XR chest 1V portable CLINICAL HISTORY: pre op preoperative evaluation COMPARISON STUDY: No previous studies for comparison. FINDINGS: The bones soft tissues and hemidiaphragms are normal. The cardiomediastinal silhouette is n ormal. The lungs are clear. The pulmonary vasculature is normal. IMPRESSION: Negative chest. The above report was generated using voice recognition software. It may contain grammatical, syntax or spelling errors. Electronically signed by: Luciano Lam M.D. 03/12/2019 6:18 AM
[2019-03-12 06:24] LABS: Albumin Level 3.3 gm/dl (3.4-5.0); BUN Creatinine Ratio 9.1 (10-20); Bilirubin Direct 3.8 mg/dl (0-0.2); Bilirubin,Total 6.2 mg/dl (0.2-1); Calcium 8.5 mg/dl (8.5-10.1); Creatinine Clr Calc Pharmacy 73.3 ml/min; Est GFR (African American) 81.8; Est GFR (Non-African American) 70.6; Magnesium 2.2 mg/dl (1.8-2.4); Potassium 3.9 mmol/L (3.5-5.1); Total Protein 7.1 gm/dl (6.4-8.2)
[2019-03-12 06:51] LABS: Estimated Average Glucose 123 mg/dl; Hemoglobin A1C 5.9 % (4.5-5.6)
[2019-03-12] MEDS: FAMOTIDINE 20 MG in SYRINGE 3 ML IV SCH ×2 (08:56→20:53)
[2019-03-12] MEDS ORDERED: FAMOTIDINE 20MG/5ML IV PUSH IV SCH (09:00)
--- NOTE | 2019-03-12 09:35 | Gastrointestinal Consultation ---
Date of Consultation March 12, 2019 Assessment & Plan (1) Acute cholecystitis: 78 year old male ELIEL, GERD, dyslipidemia, BPH who presents with RUQ pain, jaundice w/ elevated LFTS, gallstones and concern for biliary obstruction - NPO - Daily LFTs - No signs of cholangitis - afebrile - no leukocytosis - pain resolves - Will discuss with attending, advanced endoscopist - ? ERCP timing to be determined - If ERCP not today would recommend MRCP - Anti emetics PRN - Analgesia PRN Thank you for allowing us to participate in the care of this patient. Please call with any acute changes, questions or concerns. Please see addendum below with additional recommendation from my supervising physician. Present on Admission?: Yes (2) Elevated LFTs: Present on Admission?: Yes Supervising Physician Co-Signing Physician Notes I have seen and examined the patient and discussed the management with GEETA Lester. 78 yo male with a history of hyperlipidemia, gerd, prior right shoulder surgery, with intermittent abdominal pain last week, worsened tuesday that luke him into the hospital. No reports of fevers, chills Workup shows normal wbc count, TB of 6, cbd of 4 mm stone at the ampulla, and gallstones and concerns for cholecystitis. He reports no prior belly surgeries or heart surgeries or blood thinners. Agree with further plan of care as per assessment in Brandi's plan. History of Present Illness Reason for Consultation: CBD obstruction, gallstones Requesting Physician: Aristides Attending Physician: Ray Irving MD History of Present Illness 78 year old male with history of ELIEL, GERD, dyslipidemia, BPH who presented to the ED w/ epigastric and RUQ pain. PT was seen and evaluated, chart reviewed. Notes over the past month was have intermitent UGI symptoms of GERD and epigastric pain. Was started on OP PPI but was unsure if this helped w/ symptoms or they had resolved. On Tuesday had severe RUQ pain post-prandially w/ mild nausea but notes quick resolution of his pain. At this point in time he noted dark urine, pruritis despite resolution of pain. However, symptoms returned and were persistent so presented to the ED. This AM he is feeling really well. Pain resolved. No nausea, vomiting. No fever, chills, CP, SOB. No leukocytosis, normal H&H and PLTs. LFTs notably elevated w/ normal lipase. CT: Multiple gallstones with mild inflammatory change surrounding the gallbladder and common bile duct. This is consistent with acute cholecystitis. There is a 4 mm stone within the ampulla likely resulting in the mild intrahepatic bile duct dilatation.There is mild enhancement versus small stones within the cystic duct. No bowel wall thickening or obstruction. Normal appen gabriella. ABD US: gallstones and gb wall thickening Allergies Allergy/AdvReac Type Severity Reaction Status Date / Time niacin Allergy Mild LUMPS ALL Verified 03/11/19 21:23 OVER WITH HIGH DOSES Glgfbab-Gji-Mll Reductase Allergy Unknown MUSCLE Verified 03/11/19 21:23 Inhibitor ACHES WHEN TAKING FOR LONG TIME Home Medications Home Medications Medication Instructions Recorded Confirmed Type alirocumab [Praluent Pen] 0 mg SUBCUT DIRECTED 03/11/19 03/11/19 History aspirin [Aspirin Low Dose] 81 mg PO DAILY 03/11/19 03/11/19 History calcium carbonate [Calcium 500] 500 mg PO BID 03/11/19 03/11/19 History cholecalciferol (vitamin D3) 1,000 unit PO DAILY 03/11/19 03/11/19 History [Vitamin D3] coenzyme Q10 [Co Q-10] 200 mg PO DAILY 03/11/19 03/11/19 History ezetimibe 10 mg PO DAILY 03/11/19 03/11/19 History multivitamin 1 tab PO DAILY 03/11/19 03/11/19 History pantoprazole 20 mg PO DAILY 03/11/19 03/11/19 History ranitidine HCl 150 mg PO DAILY 03/11/19 03/11/19 History rosuvastatin [Crestor] 10 mg PO Q OTHER DAY 03/11/19 03/11/19 History Patient History Medical History BPH (benign prostatic hyperplasia) Dyslipidemia GERD (gastroesophageal reflux disease) IFG (impaired fasting glucose) No pertinent past medical history ELIEL (obstructive sleep apnea) Surgical History Hx of tonsillectomy Social History Preferred Language: Brazilian Communication Ability: Effective Wet Pan Mixer Required: No Beliefs That Will Affect Care: None Current Living Situation: Spouse Feels Safe at Home: Yes Safety Concerns: Feels Safe At This Time Smoking Status: Never smoker Hx Alcohol Use: No Hx Substance Use: No Review of Systems Constitutional: no fever, no chills, no fatigue and no anorexia Respiratory: no cough, no chest congestion, no dyspnea and no wheezing Cardiovascular: no chest pain, no radiating jaw, neck or arm pain, no dyspnea on exertion and no palpitations Gastrointestinal: no abdominal pain, no belching, no early satiety, no heartburn, no vomiting, no hematemesis, no cramping, no blood in stools and no melena Physical Exam Constitutional: WD/WN, vitals as above Respiratory: normal respiratory effort, lungs clear to auscultation Cardiovascular: RRR, no murmur, no edema Gastrointestinal (Abdomen): normal bowel sounds, soft, nontender, no hepatosplenomegaly Skin: no rashes, warm and dry Results & Data Vital Signs (Past 12 Hours) Vital Signs Temp Pulse Pulse Resp BP BP Pulse Ox 03/12/19 08:50 36.7 C 59 L 16 149/79 H 97 03/12/19 01:46 62 03/12/19 01:10 36.6 C 71 16 164/76 H 95 03/12/19 00:39 77 18 152/80 H 94 03/11/19 23:44 79 18 154/76 H 95 03/11/19 23:07 77 18 142/68 H 98 03/11/19 21:50 72 18 151/80 H 97 Laboratory Results 03/12/19 03/12/19 03/12/19 Range/Units 05:16 05:16 05:16 WBC 7.49 (4.8-10.8) K/uL RBC 4.70 (4.7-6.1) M/uL Hgb 14.5 (14.0-18.0) g/dL Hct 43.4 (42-52) % MCV 92.3 (80-100) fL MCH 30.9 (25-34) pg MCHC 33.4 (32-36) g/dL RDW Std Deviation 46.9 H (36.4-46.3) fL RDW Coeff of Idris 13.9 (11.5-14.5) % Plt Count 218 (130-400) K/uL MPV 10.1 (7.4-10.4) fL Immature Gran % (Auto) 0.1 % Neut % (Auto) 58.0 % Lymph % (Auto) 33.0 % [place] % (Auto) 8.1 % Eos % (Auto) 0.5 % Baso % (Auto) 0.3 % Immature Gran # (Auto) 0.01 (0.00-0.02) K/uL Neut # (Auto) 4.34 (1.4-6.5) K/uL Lymph # (Auto) 2.47 (1.2-3.4) K/uL [place] # (Auto) 0.61 H (0.11-0.59) K/uL Eos # (Auto) 0.04 (0-0.5) K/uL Baso # (Auto) 0.02 (0-0.2) K/uL PT (9.0-12.0) Seconds INR (0.9-1.1) Sodium 139 (136-145) mmol/L Potassium 3.9 (3.5-5.1) mmol/L Chloride 107 (98-107) mmol/L Carbon Dioxide 25 (21-32) mmol/L Anion Gap 7.0 (3-11) BUN 9 (7-18) mg/dl Creatinine 1.02 (0.6-1.4) mg/dl Est Cr Clr Drug Dosing 73.3 ml/min Est GFR ( Amer) 81.8 Est GFR (Non-Af Amer) 70.6 BUN/Creatinine Ratio 9.1 L (10-20) Glucose 109 H (70-99) mg/dl Estimat Average Glucose 123 mg/dl Hemoglobin A1c 5.9 H (4.5-5.6) % Calcium 8.5 (8.5-10.1) mg/dl Magnesium 2.2 (1.8-2.4) mg/dl Total Bilirubin (0.2-1) mg/dl Direct Bilirubin (0-0.2) mg/dl AST (15-37) U/L ALT (12-78) U/L Alkaline Phosphatase (45-117) U/L Total Protein (6.4-8.2) gm/dl Albumin (3.4-5.0) gm/dl Globulin (2.5-4.0) gm/dl Albumin/Globulin Ratio (0.9-2) Lipase (73-393) U/L 04/22/19 04/21/19 04/21/19 Range/Units 05:16 21:01 21:01 WBC (4.8-10.8) K/uL RBC (4.7-6.1) M/uL Hgb (14.0-18.0) g/dL Hct (42-52) % MCV (80-100) fL MCH (25-34) pg MCHC (32-36) g/dL RDW Std Deviation (36.4-46.3) fL RDW Coeff of Idris (11.5-14.5) % Plt Count (130-400) K/uL MPV (7.4-10.4) fL Immature Gran % (Auto) % Neut % (Auto) % Lymph % (Auto) % [place] % (Auto) % Eos % (Auto) % Baso % (Auto) % Immature Gran # (Auto) (0.00-0.02) K/uL Neut # (Auto) (1.4-6.5) K/uL Lymph # (Auto) (1.2-3.4) K/uL [place] # (Auto) (0.11-0.59) K/uL Eos # (Auto) (0-0.5) K/uL Baso # (Auto) (0-0.2) K/uL PT 10.7 (9.0-12.0) Seconds INR 1.0 (0.9-1.1) Sodium 138 (136-145) mmol/L Potassium 4.0 (3.5-5.1) mmol/L Chloride 105 (98-107) mmol/L Carbon Dioxide 24 (21-32) mmol/L Anion Gap 9.0 (3-11) BUN 12 (7-18) mg/dl Creatinine 1.17 (0.6-1.4) mg/dl Est Cr Clr Drug Dosing 63.8 ml/min Est GFR ( Amer) 69.3 Est GFR (Non-Af Amer) 59.8 BUN/Creatinine Ratio 10.3 (10-20) Glucose 142 H (70-99) mg/dl Estimat Average Glucose mg/dl Hemoglobin A1c (4.5-5.6) % Calcium 9.4 (8.5-10.1) mg/dl Magnesium (1.8-2.4) mg/dl Total Bilirubin 6.2 H 6.3 H (0.2-1) mg/dl Direct Bilirubin 3.8 H (0-0.2) mg/dl AST 78 H 90 H (15-37) U/L ALT 185 H 212 H (12-78) U/L Alkaline Phosphatase 240 H 267 H (45-117) U/L Total Protein 7.1 7.8 (6.4-8.2) gm/dl Albumin 3.3 L 3.9 (3.4-5.0) gm/dl Globulin 3.9 (2.5-4.0) gm/dl Albumin/Globulin Ratio 1.0 (0.9-2) Lipase 70 L (73-393) U/L 03/11/19 Range/Units 21:01 WBC 7.99 (4.8-10.8) K/uL RBC 4.74 (4.7-6.1) M/uL Hgb 14.6 (14.0-18.0) g/dL Hct 42.9 (42-52) % MCV 90.5 (80-100) fL MCH 30.8 (25-34) pg MCHC 34.0 (32-36) g/dL RDW Std Deviation 45.4 (36.4-46.3) fL RDW Coeff of Idris 13.7 (11.5-14.5) % Plt Count 216 (130-400) K/uL MPV 10.1 (7.4-10.4) fL Immature Gran % (Auto) 0.1 % Neut % (Auto) 71.4 % Lymph % (Auto) 20.2 % [place] % (Auto) 7.8 % Eos % (Auto) 0.4 % Baso % (Auto) 0.1 % Immature Gran # (Auto) 0.01 (0.00-0.02) K/uL Neut # (Auto) 5.71 (1.4-6.5) K/uL Lymph # (Auto) 1.61 (1.2-3.4) K/uL [place] # (Auto) 0.62 H (0.11-0.59) K/uL Eos # (Auto) 0.03 (0-0.5) K/uL Baso # (Auto) 0.01 (0-0.2) K/uL PT (9.0-12.0) Seconds INR (0.9-1.1) Sodium (136-145) mmol/L Potassium (3.5-5.1) mmol/L Chloride (98-107) mmol/L Carbon Dioxide (21-32) mmol/L Anion Gap (3-11) BUN (7-18) mg/dl Creatinine (0.6-1.4) mg/dl Est Cr Clr Drug Dosing ml/min Est GFR ( Amer) Est GFR (Non-Af Amer) BUN/Creatinine Ratio (10-20) Glucose (70-99) mg/dl Estimat Average Glucose mg/dl Hemoglobin A1c (4.5-5.6) % Calcium (8.5-10.1) mg/dl Magnesium (1.8-2.4) mg/dl Total Bilirubin (0.2-1) mg/dl Direct Bilirubin (0-0.2) mg/dl AST (15-37) U/L ALT (12-78) U/L Alkaline Phosphatase (45-117) U/L Total Protein (6.4-8.2) gm/dl Albumin (3.4-5.0) gm/dl Globulin (2.5-4.0) gm/dl Albumin/Globulin Ratio (0.9-2) Lipase (73-393) U/L
--- NOTE | 2019-03-12 09:48 | Surgery Consultation ---
Date of Consultation March 12, 2019 Assessment & Plan (1) Acute cholecystitis: 78 year-old male who presented to emergency room with abdominal distention and RUQ abdominal pain that began Tuesday. States he had severe pain that would come and go with bloating and nausea. Noticed persistent pain yesterday and looked yellow so presented to emergency room. Labs show no leukocytosis but elevated t. bili at 6.3 and elevated LFTS and Alk phos concerning for biliary obstruction. Ultrasound showed completely filled gallbladder with stones and dilated CBD at 7 mm with some thickening of gallbladder wall concerning for possible developing acute cholecystitis. CT scan of abdomen and pelvis showed some pericholecystic fluid concerning for acute cholecystitis as well as 4 mm stone at ampulla causing intrahepatic and extrahepatic ductal dilatation. Abdomen is soft, nondistended. Labs still elevated today due to obstruction. Plan: Await GI recommendations and plan for ERCP today? Likely need cholecystectomy however determine timing either combination with ERCP or separately. Continue NPO Continue IV fluids, pain management, IV Zofran prn nausea Continue medical management Continue IV abx Dr. Miller to examine patient later today, please see addendum for further plans/recommendations (2) Elevated LFTs: Supervising Physician Co-Signing Physician Notes I have seen and evaluated the patient and reviewed the medical record. I agree with the documentation as provided in this note by Thelma Oropeza PA-C. 78 yo male who presents with acute cholecystitis and choledocholithiasis who is s/p ERCP. Plan for laparoscopic, possible open, cholecystectomy. Tentatively scheduled for 03/13/19, pending pt exam and morning labs. Discussed risk, benefits, and alternatives with the patient and his family (see below), however final consent will be obtained tomorrow as pt had anesthetic this afternoon. - Tentative OR on 03/13/19 - IVF - Okay for clears, NPO after midnight - Abx Risks, benefits, goals, complications, post-op expectations, limitations, and alternatives were discussed with the patient and his family. Risks include, but are not limited to, pain, scarring, bleeding and associated problems, infection, heart attack, breathing problems including required intubation post-operatively, stroke, blood clots including deep vein thrombosis and pulmonary embolism, injury to surrounding tissues or organs, , need for additional procedures, injury to bile ducts, bile leak, abscess, seroma, hematoma, hernia, diarrhea and failure of symptom resolution. All questions were answered to apparent satisfaction. History of Present Illness Reason for Consultation: acute cholecystitis choledocholithiasis Requesting Physician: Aristides Attending Physician: Ray Irving MD History of Present Illness Piero is a pleasant 78 year-old male who presented to emergency department last evening with complaint of severe abdominal pain and bloating that began Tuesday. States he has severe episodes of pain that began Tuesday which waxed and waned with bloating. States he would walk around to help with the discomfort which would ease up at times however yesterday he said pain persisted and would not let up which brought him here to hospital. He also noticed that he was yellow. States he had associated nausea but no vomiting. No changes in his bowel habits. He did notice that his urine became darker and almost looked like blood over the weekend. States he is feeling much better today with minimal pain. No nausea or vomiting. Labs showed no leukocytosis. T. bili elevated at 6.2, D. bili at 3.8, AST 78, ALT 185, and Alk phos 240. Ultrasound showing gallbladder filled with stones as well as CBD measuring [address] scan of abdomen and pelvis showed dilated CBD at 7 mm with evidence of 4 mm stone at ampulla consistent with choledocholithiasis. Piero states he is overall healthy. Goes to gym 3 times a day. No history of gallbladder troubles or known history of gallstones. No prior history of abdominal surgeries. Allergies Allergy/AdvReac Type Severity Reaction Status Date / Time niacin Allergy Mild LUMPS ALL Verified 03/11/19 21:23 OVER WITH HIGH DOSES [id number]-Atv Reductase Allergy Unknown MUSCLE Verified 03/11/19 21:23 Inhibitor ACHES WHEN TAKING FOR LONG TIME Home Medications Home Medications Medication Instructions Recorded Confirmed Type alirocumab [Praluent Pen] 0 mg SUBCUT DIRECTED 03/11/19 03/11/19 History aspirin [Aspirin Low Dose] 81 mg PO DAILY 03/11/19 03/11/19 History calcium carbonate [Calcium 500] 500 mg PO BID 03/11/19 03/11/19 History cholecalciferol (vitamin D3) 1,000 unit PO DAILY 03/11/19 03/11/19 History [Vitamin D3] coenzyme Q10 [Co Q-10] 200 mg PO DAILY 03/11/19 03/11/19 History ezetimibe 10 mg PO DAILY 03/11/19 03/11/19 History multivitamin 1 tab PO DAILY 03/11/19 03/11/19 History pantoprazole 20 mg PO DAILY 03/11/19 03/11/19 History ranitidine HCl 150 mg PO DAILY 03/11/19 03/11/19 History rosuvastatin [Crestor] 10 mg PO Q OTHER DAY 03/11/19 03/11/19 History Patient History Medical History BPH (benign prostatic hyperplasia) Dyslipidemia GERD (gastroesophageal reflux disease) IFG (impaired fasting glucose) ELIEL (obstructive sleep apnea) Surgical History Hx of tonsillectomy Social History Preferred Language: Samoan Communication Ability: Effective Elementary Secretary Required: No Beliefs That Will Affect Care: None Current Living Situation: Spouse Feels Safe at Home: Yes Safety Concerns: Feels Safe At This Time Smoking Status: Never smoker Hx Alcohol Use: No Hx Substance Use: No Review of Systems Review of Systems: All systems reviewed & are unremarkable except as noted in HPI & below Physical Exam Constitutional: WD/WN, vitals as above + not well nourished and no acute distress eyes icteric Respiratory: normal respiratory effort, lungs clear to auscultation Cardiovascular: RRR, no murmur, no edema Gastrointestinal (Abdomen): Inspection/Auscultation: abdomen normal to inspection and normal bowel sounds; abdomen not distended Percussion/ Palpation: abdomen soft; abdomen nontender, no guarding and abdomen not rigid Skin: no rashes, warm and dry Psychiatric: A+Ox3, euthymic affect Results & Data Vital Signs (Past 12 Hours) Vital Signs Temp Pulse Pulse Resp BP BP Pulse Ox 03/12/19 08:50 36.7 C 59 L 16 149/79 H 97 03/12/19 01:46 62 03/12/19 01:10 36.6 C 71 16 164/76 H 95 03/12/19 00:39 77 18 152/80 H 94 03/11/19 23:44 79 18 154/76 H 95 03/11/19 23:07 77 18 142/68 H 98 03/11/19 21:50 72 18 151/80 H 97 Laboratory Results 03/12/19 03/12/19 03/12/19 Range/Units Unknown 05:16 05:16 WBC (4.8-10.8) K/uL RBC (4.7-6.1) M/uL Hgb (14.0-18.0) g/dL Hct (42-52) % MCV (80-100) fL MCH (25-34) pg MCHC (32-36) g/dL RDW Std Deviation (36.4-46.3) fL RDW Coeff of Idris (11.5-14.5) % Plt Count (130-400) K/uL MPV (7.4-10.4) fL Immature Gran % (Auto) % Neut % (Auto) % Lymph % (Auto) % Mills % (Auto) % Eos % (Auto) % Baso % (Auto) % Immature Gran # (Auto) (0.00-0.02) K/uL Neut # (Auto) (1.4-6.5) K/uL Lymph # (Auto) (1.2-3.4) K/uL Mills # (Auto) (0.11-0.59) K/uL Eos # (Auto) (0-0.5) K/uL Baso # (Auto) (0-0.2) K/uL PT (9.0-12.0) Seconds INR (0.9-1.1) Sodium 139 (136-145) mmol/L Potassium 3.9 (3.5-5.1) mmol/L Chloride 107 (98-107) mmol/L Carbon Dioxide 25 (21-32) mmol/L Anion Gap 7.0 (3-11) BUN 9 (7-18) mg/dl Creatinine 1.02 (0.6-1.4) mg/dl Est Cr Clr Drug Dosing 73.3 ml/min Est GFR ( Amer) 81.8 Est GFR (Non-Af Amer) 70.6 BUN/Creatinine Ratio 9.1 L (10-20) Glucose 109 H (70-99) mg/dl Estimat Average Glucose 123 mg/dl Hemoglobin A1c 5.9 H (4.5-5.6) % Calcium 8.5 (8.5-10.1) mg/dl Magnesium 2.2 (1.8-2.4) mg/dl Total Bilirubin (0.2-1) mg/dl Direct Bilirubin (0-0.2) mg/dl AST (15-37) U/L ALT (12-78) U/L Alkaline Phosphatase (45-117) U/L Total Protein (6.4-8.2) gm/dl Albumin (3.4-5.0) gm/dl Globulin (2.5-4.0) gm/dl Albumin/Globulin Ratio (0.9-2) Lipase (73-393) U/L Urine Color Dark Yellow Urine Appearance Clear (Clear) Urine pH 5.0 (4.5-7.5) Ur Specific [place] 1.039 H (1.000-1.030) Urine Protein Negative (Negative) Urine Glucose (UA) Negative (Negative) Urine Ketones Trace H (Negative) Urine Blood Negative (Negative) Urine Nitrite Negative (Negative) Urine Bilirubin 2+ H (Negative) Urine Urobilinogen Negative (Negative) Ur Leukocyte Esterase Negative (Negative) 03/12/19 03/12/19 03/11/19 Range/Units 05:16 05:16 21:01 WBC 7.49 (4.8-10.8) K/uL RBC 4.70 (4.7-6.1) M/uL Hgb 14.5 (14.0-18.0) g/dL Hct 43.4 (42-52) % MCV 92.3 (80-100) fL MCH 30.9 (25-34) pg MCHC 33.4 (32-36) g/dL RDW Std Deviation 46.9 H (36.4-46.3) fL RDW Coeff of Idris 13.9 (11.5-14.5) % Plt Count 218 (130-400) K/uL MPV 10.1 (7.4-10.4) fL Immature Gran % (Auto) 0.1 % Neut % (Auto) 58.0 % Lymph % (Auto) 33.0 % Mills % (Auto) 8.1 % Eos % (Auto) 0.5 % Baso % (Auto) 0.3 % Immature Gran # (Auto) 0.01 (0.00-0.02) K/uL Neut # (Auto) 4.34 (1.4-6.5) K/uL Lymph # (Auto) 2.47 (1.2-3.4) K/uL Mills # (Auto) 0.61 H (0.11-0.59) K/uL Eos # (Auto) 0.04 (0-0.5) K/uL Baso # (Auto) 0.02 (0-0.2) K/uL PT (9.0-12.0) Seconds INR (0.9-1.1) Sodium 138 (136-145) mmol/L Potassium 4.0 (3.5-5.1) mmol/L Chloride 105 (98-107) mmol/L Carbon Dioxide 24 (21-32) mmol/L Anion Gap 9.0 (3-11) BUN 12 (7-18) mg/dl Creatinine 1.17 (0.6-1.4) mg/dl Est Cr Clr Drug Dosing 63.8 ml/min Est GFR ( Amer) 69.3 Est GFR (Non-Af Amer) 59.8 BUN/Creatinine Ratio 10.3 (10-20) Glucose 142 H (70-99) mg/dl Estimat Average Glucose mg/dl Hemoglobin A1c (4.5-5.6) % Calcium 9.4 (8.5-10.1) mg/dl Magnesium (1.8-2.4) mg/dl Total Bilirubin 6.2 H 6.3 H (0.2-1) mg/dl Direct Bilirubin 3.8 H (0-0.2) mg/dl AST 78 H 90 H (15-37) U/L ALT 185 H 212 H (12-78) U/L Alkaline Phosphatase 240 H 267 H (45-117) U/L Total Protein 7.1 7.8 (6.4-8.2) gm/dl Albumin 3.3 L 3.9 (3.4-5.0) gm/dl Globulin 3.9 (2.5-4.0) gm/dl Albumin/Globulin Ratio 1.0 (0.9-2) Lipase 70 L (73-393) U/L Urine Color Urine Appearance (Clear) Urine pH (4.5-7.5) Ur Specific [place] (1.000-1.030) Urine Protein (Negative) Urine Glucose (UA) (Negative) Urine Ketones (Negative) Urine Blood (Negative) Urine Nitrite (Negative) Urine Bilirubin (Negative) Urine Urobilinogen (Negative) Ur Leukocyte Esterase (Negative) 03/11/19 03/11/19 Range/Units 21:01 21:01 WBC 7.99 (4.8-10.8) K/uL RBC 4.74 (4.7-6.1) M/uL Hgb 14.6 (14.0-18.0) g/dL Hct 42.9 (42-52) % MCV 90.5 (80-100) fL MCH 30.8 (25-34) pg MCHC 34.0 (32-36) g/dL RDW Std Deviation 45.4 (36.4-46.3) fL RDW Coeff of Idris 13.7 (11.5-14.5) % Plt Count 216 (130-400) K/uL MPV 10.1 (7.4-10.4) fL Immature Gran % (Auto) 0.1 % Neut % (Auto) 71.4 % Lymph % (Auto) 20.2 % Mills % (Auto) 7.8 % Eos % (Auto) 0.4 % Baso % (Auto) 0.1 % Immature Gran # (Auto) 0.01 (0.00-0.02) K/uL Neut # (Auto) 5.71 (1.4-6.5) K/uL Lymph # (Auto) 1.61 (1.2-3.4) K/uL Mills # (Auto) 0.62 H (0.11-0.59) K/uL Eos # (Auto) 0.03 (0-0.5) K/uL Baso # (Auto) 0.01 (0-0.2) K/uL PT 10.7 (9.0-12.0) Seconds INR 1.0 (0.9-1.1) Sodium (136-145) mmol/L Potassium (3.5-5.1) mmol/L Chloride (98-107) mmol/L Carbon Dioxide (21-32) mmol/L Anion Gap (3-11) BUN (7-18) mg/dl Creatinine (0.6-1.4) mg/dl Est Cr Clr Drug Dosing ml/min Est GFR ( Amer) Est GFR (Non-Af Amer) BUN/Creatinine Ratio (10-20) Glucose (70-99) mg/dl Estimat Average Glucose mg/dl Hemoglobin A1c (4.5-5.6) % Calcium (8.5-10.1) mg/dl Magnesium (1.8-2.4) mg/dl Total Bilirubin (0.2-1) mg/dl Direct Bilirubin (0-0.2) mg/dl AST (15-37) U/L ALT (12-78) U/L Alkaline Phosphatase (45-117) U/L Total Protein (6.4-8.2) gm/dl Albumin (3.4-5.0) gm/dl Globulin (2.5-4.0) gm/dl Albumin/Globulin Ratio (0.9-2) Lipase (73-393) U/L Urine Color Urine Appearance (Clear) Urine pH (4.5-7.5) Ur Specific [place] (1.000-1.030) Urine Protein (Negative) Urine Glucose (UA) (Negative) Urine Ketones (Negative) Urine Blood (Negative) Urine Nitrite (Negative) Urine Bilirubin (Negative) Urine Urobilinogen (Negative) Ur Leukocyte Esterase (Negative) Diagnostic Findings ABDOMEN AND PELVIS CT WITH IV CONTRAST CT DOSE: 660.01 mGy.cm HISTORY: epigastric pain TECHNIQUE: Multiaxial CT images of the abdomen and pelvis were performed following the use of intravenous contrast. A dose lowering technique was utilized adhering to the principles of ALARA. COMPARISON STUDY: Abdominal ultrasound 03/11/2019. FINDINGS: Calcified right hilar lymph nodes. Calcified granuloma within the lingula. Mild dependent changes seen at the lung bases. No pneumoperitoneum. No pneumatosis. No suspicious lytic or blastic osseous lesions. A 5 mm hypodense lesion within the left hepatic lobe. This is too small to characterize. The main portal vein is patent. Mild central intrahepatic bile duct dilatation. The spleen is unremarkable. Normal adrenal glands and pancreas. A 3 cm cyst within the upper pole of the left kidney. There is also a 1 cm hypodense lesion within the left kidney. This also favors a cyst. No hydronephrosis. A left circumaortic renal vein. No retroperitoneal lymphadenopathy. Normal bladder. No bowel wall thickening or obstruction. Normal appendix. No retroperitoneal lymphadenopathy. Mild inflammatory change surrounding the gallbladder and common bile duct. There is mild enhancement within the wall of the cystic duct. Multiple stones within the gallbladder. There is also a stone within the ampulla best seen on image 191. This measures 4 mm. The common bile duct is at the upper limits of normal for age measuring 7 mm. The cystic duct is mildly distended. The mass of the stone within the cystic duct. However, this is difficult to assess due to the motion artifact at this location. IMPRESSION: 1. Multiple gallstones with mild inflammatory change surrounding the gallbladder and common bile duct. This is consistent with acute cholecystitis. 2. There is a 4 mm stone within the ampulla likely resulting in the mild intrahepatic bile duct dilatation. 3. There is mild enhancement versus small stones within the cystic duct. 4. No bowel wall thickening or obstruction. 5. Normal appendix. ABDOMINAL ULTRASOUND, RIGHT UPPER QUADRANT HISTORY: RUQ pain, jaundice. COMPARISON: None. FINDINGS: Pancreas: Obscured by overlying bowel gas. Liver: The liver is echogenic consistent with fatty change. Gallbladder: Completely filled with gallstones. Mild gallbladder wall thickening measuring 4 mm. No pericholecystic fluid. CBD: 7 mm in diameter. This is normal given the patient's age. Right kidney: No hydronephrosis. IMPRESSION: The gallbladder is completely filled gallstones and there is mild gallbladder wall thickening. This raises the possibility of developing acute cholecystitis.
[2019-03-12 11:08] LABS: Appearance Urine Clear (Clear); Blood Urine Negative (Negative); Color Urine Dark Yellow; Glucose Urine UA Negative (Negative); Ketones Urine Trace (Negative); Leukocyte Esterase Urine Negative (Negative); Nitrite Urine Negative (Negative); Protein Urine Negative (Negative); Specific Gravity Urine 1.039 (1.000-1.030); Urobilinogen Urine Negative (Negative)
[2019-03-12 11:21] LABS: Bilirubin Urine 2+ (Negative); Ictotest Urine Positive (Negative)
--- NOTE | 2019-03-12 13:51 | Anesthesiology Consultation ---
Date of Service March 12, 2019 Assessment & Plan (1) Encounter for pre-operative examination: Chart Review Chart Review: Acceptable Risk for Surgery and Patient NOT seen in Pre Admission Testing Consults Requested none History Surgery Operation Date: 03/12/19 12:40 Proposed Procedures p Endoscopic Retrograde Cholangiopancreato - Anette Dickerson MD Height/Weight Height: 6 ft Weight: 97.1 kg Allergies Allergy/AdvReac Type Severity Reaction Status Date / Time niacin Allergy Mild LUMPS ALL Verified 03/11/19 21:23 OVER WITH HIGH DOSES [id number]-Thc Reductase Allergy Unknown MUSCLE Verified 03/11/19 21:23 Inhibitor ACHES WHEN TAKING FOR LONG TIME Medications Home Medications Medication Instructions Recorded Confirmed Last Taken alirocumab [Praluent Pen] 0 mg SUBCUT DIRECTED 03/11/19 03/11/19 Unknown aspirin [Aspirin Low Dose] 81 mg PO DAILY 03/11/19 03/11/19 03/11/19 calcium carbonate [Calcium 500] 500 mg PO BID 03/11/19 03/11/19 03/11/19 cholecalciferol (vitamin D3) 1,000 unit PO DAILY 03/11/19 03/11/19 03/11/19 [Vitamin D3] coenzyme Q10 [Co Q-10] 200 mg PO DAILY 03/11/19 03/11/19 03/11/19 ezetimibe 10 mg PO DAILY 03/11/19 03/11/19 03/11/19 multivitamin 1 tab PO DAILY 03/11/19 03/11/19 03/11/19 pantoprazole 20 mg PO DAILY 03/11/19 03/11/19 03/11/19 ranitidine HCl 150 mg PO DAILY 03/11/19 03/11/19 03/11/19 rosuvastatin [Crestor] 10 mg PO Q OTHER DAY 03/11/19 03/11/19 Unknown Active Medications Generic Name Dose Route Start Last Admin Trade Name Freq PRN Reason Stop Dose Admin Sodium Chloride 1,000 mls @ 125 mls/hr 03/11/19 20:45 03/12/19 07:50 Nss 1000ml IV 04/10/19 20:44 125 mls/hr .Q8H MAGDA Infusion Famotidine 20 mg/ Syringe 5 mls @ 2.5 mls/min 03/12/19 09:00 03/12/19 08:56 IV 04/11/19 08:59 2.5 mls/min BID MAGDA Administration Piperacillin Sod/Tazobactam 115 mls @ 28.75 mls/hr 03/12/19 04:00 03/12/19 11:57 Sod 3.375 gm/ Dextrose IV 03/22/19 03:59 28.8 mls/hr Q8H MAGDA Administration Protocol Past Medical History Medical History BPH (benign prostatic hyperplasia) Dyslipidemia GERD (gastroesophageal reflux disease) IFG (impaired fasting glucose) ELIEL (obstructive sleep apnea) Past Surgical History Surgical History Hx of tonsillectomy Social History Smoking Status: Never smoker Hx Alcohol Use: No Hx Substance Use: No Physical Exam Vital Signs Last Vital Signs Temp 36.7 C 03/12/19 08:50 Pulse 59 L 03/12/19 08:50 Resp 16 03/12/19 08:50 BP 149/79 H 03/12/19 08:50 Pulse Ox 97 03/12/19 08:50 Testing Electrocardiogram Date: 03/12/19 Findings: + SB @ (56) Sinus bradycardia Left axis deviation Abnormal ECG When compared with ECG of 04-SEP-2007 14:54, No significant change was found Chest X-Ray Date: 03/11/19 XR chest 1V portable CLINICAL HISTORY: pre op preoperative evaluation COMPARISON STUDY: No previous studies for comparison. FINDINGS: The bones soft tissues and hemidiaphragms are normal. The cardiomediastinal silhouette is normal. The lungs are clear. The pulmonary vasculature is normal. IMPRESSION: Negative chest. Laboratory Results 03/12/19 05:16 03/12/19 05:16 PT 10.7 Seconds (9.0-12.0) 03/11/19 21:01 INR 1.0 (0.9-1.1) 03/11/19 21:01 Hemoglobin A1c 5.9 % (4.5-5.6) H 03/12/19 05:16 Urine Color Dark Yellow 03/12/19 Unknown Urine Appearance Clear (Clear) 03/12/19 Unknown Urine pH 5.0 (4.5-7.5) 03/12/19 Unknown Ur Specific [place] 1.039 (1.000-1.030) H 03/12/19 Unknown Urine Protein Negative (Negative) 03/12/19 Unknown Urine Glucose (UA) Negative (Negative) 03/12/19 Unknown Urine Ketones Trace (Negative) H 03/12/19 Unknown Urine Nitrite Negative (Negative) 03/12/19 Unknown Ur Leukocyte Esterase Negative (Negative) 03/12/19 Unknown
[2019-03-12] MEDS ORDERED: INDOMETHACIN 50 MG SUPP PR ONE (15:00)
--- NOTE | 2019-03-12 15:18 | History & Physical Bridge Note ---
Date of Service March 12, 2019 History & Physical Bridge Note I have examined the patient, reviewed the History & Physical and in the interval since the performance of the History & Physical I have noted the following changes of clinical significance: no changes noted ERCP today, I explained the risk pf perforation, bleeding and pancreatitis, patient agreed.
[2019-03-12] MEDS ORDERED: ePHEDrine sulfate 50 MG/ML AMP IV PRN (15:33)
[2019-03-12] MEDS ORDERED: ATROPINE SULFATE 0.1 MG/ML 10ML SYR IV PRN (15:33)
[2019-03-12] MEDS ORDERED: fentaNYL citrate 100 MCG/2 ML VIAL IV PRN (15:33)
[2019-03-12] MEDS ORDERED: fentaNYL citrate 100 MCG/2 ML VIAL ONE (15:47)
[2019-03-12] MEDS ORDERED: PROPOFOL IV EMULSION 10 MG/ML 20 ML VIAL IV ONE (15:47)
[2019-03-12] MEDS ORDERED: SUCCINYLCHOLINE CHLORIDE 20 MG/ML 10 ML VIAL ONE (15:47)
[2019-03-12] MEDS ORDERED: LIDOCAINE HCL 2% 2 ML VIAL/AMP(20MG/ML) INFIL ONE (15:47)
--- NOTE | 2019-03-12 16:48 | Operative Report ---
Post Operative Report Pre & Post Diagnosis Operation Date: 03/12/19 12:40 Pre-Op Diagnosis: jaundice, with Biliary Obstruction Post-Op Diagnosis: common bile duct stone Procedure Operation Date: 03/12/19 12:40 Actual Procedures p Endoscopic Retrograde Cholangiopancreatography, sphincterotomy, balloon sweep with stone removal, and biliary stent placement(Not Applicable) - Anette Dickerson MD Surgeon Anette Dickerson MD Machine Stripper Cutter None Estimated Blood Loss 0 Findings See Below (Sphincterotomy, balloon sweep, CBD stone removed, CBD stent placed) Specimens None Description of Procedure ERCP I attest to the content of the Intraoperative Record and any orders documented therein. Any exceptions are noted below.
--- NOTE | 2019-03-12 17:00 | GI REPORT ---
Patient Name: Piero Peters Procedure Date: 03/12/2019 3:33 PM Date of : 1940 Admit Type: Inpatient Age: 78 Gender: Male Attending MD: Anette Dickerson MD Procedure: ERCP Providers: Anette Dickerson MD Referring MD: ANISH Ley Nina Ahuja, M.d. Indications: Abdominal pain of suspected biliary origin, Abnormal abdominal CT, Biliary dilation on Computed Tomogram Scan, Bile duct stone on Computed Tomogram Scan, For therapy of bile duct stone(s) Medicines: General Anesthesia Complications: No immediate complications. Estimated Blood Loss: Estimated blood loss: none. Procedure: Pre-Anesthesia Assessment: - Prior to the procedure, a History and Physical was performed, and patient medications and allergies were reviewed. The patient is competent. The risks and benefits of the procedure and the sedation options and risks were discussed with the patient. All questions were answered and informed consent was obtained. Patient identification and proposed procedure were verified by the physician and the nurse in the procedure room. Mental Status Examination: alert and oriented. Airway Examination: normal oropharyngeal airway and neck mobility. Respiratory Examination: clear to auscultation. CV Examination: normal. ASA Grade Assessment: II - A patient with mild systemic disease. After reviewing the risks and benefits, the patient was deemed in satisfactory condition to undergo the procedure. The anesthesia plan was to use general anesthesia. Immediately prior to administration of medications, the patient was re-assessed for adequacy to receive sedatives. The heart rate, respiratory rate, oxygen saturations, blood pressure, adequacy of pulmonary ventilation, and response to care were monitored throughout the procedure. The physical status of the patient was re-assessed after the procedure. After obtaining informed consent, the scope was passed under direct vision. Throughout the procedure, the patient's blood pressure, pulse, and oxygen saturations were monitored continuously. The scope was introduced through the mouth, and advanced to the duodenum and used to inject contrast into the bile duct. The ERCP was accomplished without difficulty. The patient tolerated the procedure well. Findings: The economic historian film was normal. The esophagus was successfully intubated under direct vision. The scope was advanced to a normal major papilla in the descending duodenum without detailed examination of the pharynx, larynx and associated structures, and upper GI tract. The upper GI tract was grossly normal. Deep biliary cannulation could not be achieved despite multiple attempts using the sphincterotome. A biliary pre-cut sphincterotomy was made with a monofilament needle knife using a freehand technique using ERBE electrocautery. There was no post-sphincterotomy bleeding. A 0.035 inch straight standard wire was passed into the biliary tree. The Fusion OMNI sphincterotome was passed over the guidewire and the bile duct was then deeply cannulated. Contrast was injected. I personally interpreted the bile duct images. Ductal flow of contrast was adequate. Image quality was adequate. Contrast extended to the main bile duct. The main bile duct was mildly dilated, with a stone causing an obstruction. The largest diameter was 8 mm. The lower third of the main bile duct contained filling defect(s) thought to be a stone. The biliary sphincterotomy was extended with a monofilament Fusion OMNI sphincterotome using ERBE electrocautery. There was no post-sphincterotomy bleeding. To discover objects, the biliary tree was swept with an 8.5 mm balloon starting at the bifurcation. Three stones were removed. No stones remained. One 10 Fr by 7 cm plastic stent with a single external flap and a single internal flap was placed into the common bile duct. Bile flowed through the stent. The stent was in good position. Indomethacin 100 mg was given via suppository to decrease the risk of post-ERCP pancreatitis (PEP). The total fluoroscopy exposure time was 1 minute and 25 seconds. PD was not cannulated nor injected with contrast. Impression: - The entire main bile duct was mildly dilated, with a stone causing an obstruction. - Choledocholithiasis was found. Complete removal was accomplished by biliary sphincterotomy and balloon extraction. - One plastic stent was placed into the common bile duct. Recommendation: - Return patient to [facility] for ongoing care. - Avoid aspirin and nonsteroidal anti-inflammatory medicines for 5 days. - Clear liquid diet. - Repeat ERCP in 4 - 8 weeks to remove stent. - Follow up with surgery for cholecystectomy. Anette Dickerson MD 03/12/2019 5:00:05 PM This report has been signed electronically. Note Initiated On: 03/12/2019 3:33 PM Number of Addenda: 0 I attest to the content of the Intraoperative Record and orders documented therein, exceptions below {[id number]}
--- NOTE | 2019-03-12 17:39 | Anesthesiology Progress Note ---
Date of Service March 12, 2019 Anesthesia Post Procedure Vital Signs Vital Signs: Temp Pulse Pulse Pulse Resp BP BP 03/12/19 17:30 56 L 21 170/78 H 03/12/19 17:20 59 L 14 161/82 H 03/12/19 17:10 60 17 172/79 H 03/12/19 17:01 36.5 C 67 16 160/91 H 03/12/19 15:10 36.9 C 76 18 160/83 H 03/12/19 08:50 36.7 C 59 L 16 149/79 H 03/12/19 01:46 62 03/12/19 01:10 36.6 C 71 16 164/76 H 03/12/19 00:39 77 18 152/80 H 03/11/19 23:44 79 18 154/76 H 03/11/19 23:07 77 18 142/68 H 03/11/19 21:50 72 18 151/80 H 03/11/19 21:10 03/11/19 20:21 36.5 C 67 18 183/75 H Pulse Ox 03/12/19 17:30 97 03/12/19 17:20 100 03/12/19 17:10 100 03/12/19 17:01 97 03/12/19 15:10 98 03/12/19 08:50 97 03/12/19 01:46 03/12/19 01:10 95 03/12/19 00:39 94 03/11/19 23:44 95 03/11/19 23:07 98 03/11/19 21:50 97 03/11/19 21:10 98 03/11/19 20:21 97 Pain Intensity Abdomen: Pain Intensity: 3 Notes Mental Status: alert / awake / arousable Patient Amnestic to Procedure: Yes Nausea / Vomiting: adequately controlled Pain: adequately controlled Airway Patency, RR, SpO2: stable & adequate BP & HR: stable & adequate Hydration State: stable & adequate Anesthetic Complications: no major complications apparent
--- NOTE | 2019-03-12 17:57 | Fluoroscopy Report ---
[place] ERCP biliary ductal CLINICAL HISTORY: R/O STONES COMPARISON STUDY: Abdomen and pelvis CT 03/11/2019. FLUOROSCOPY TIME: 1 minute and 45 seconds. FINDINGS: The below scanning contrast is injected into the common bile duct. There is a filling defec t seen at the distal common bile duct consistent with a stone. A balloon sweep was performed. Contras t extends into the gallbladder to the cystic duct. A common bile duct stent was placed. IMPRESSION: Fluoroscopy provided for ERCP. Electronically signed by: Anthony Rivera M.D. 03/12/2019 5:55 PM
[2019-03-12] MEDS: MoRPHine SULFATE 4 MG/ML 1 ML CARP\\VIAL IV PRN (20:12)
--- NOTE | 2019-03-12 21:37 | Hospitalist Progress Note ---
Date of Service March 12, 2019 Assessment & Plan (1) Biliary calculus with acute cholecystitis: GI and General Surgery consulted. ERCP with sphincterotomy and balloon sweep with stone removal performed. Cholecystectomy anticipated. (2) GERD (gastroesophageal reflux disease): Receiving famotidine. (3) IFG (impaired fasting glucose): Follow blood sugars. (4) DVT prophylaxis: No anticoagulants at this time due to invasive procedures. SCD's. Ambulate. (5) Discharge planning issues: Anticipated discharge to home. Internal Medicine follow-up with Dr. Wren. Subjective Recheck for cholecystitis and other problems. Patient seen in his room around 2114. ERCP today went well. Has some mild RUQ tenderness. Mild nausea, no emesis. No fever, chills, sweats. No chest pain. No cough or SOB. No urinary symptoms. Review of systems as noted above. Physical Exam Constitutional: no acute distress Respiratory: no respiratory distress Auscultation: lungs clear to auscultation bilaterally Cardiovascular: Rate/Rhythm: regular rate and regular rhythm Heart Sounds: no gallop, no murmur and no cardiac rub Vessels: no JVD Extremities: no calf tenderness and no edema Gastrointestinal (Abdomen): Inspection/Auscultation: normal bowel sounds Percussion/Palpation: + abdomen tender (mild RUQ tenderness without rebound or guarding) and abdomen soft Skin: no rashes, warm and dry Psychiatric: Orientation: alert and oriented x 3 Results & Data Vital Signs (Past 12 Hours) Vital Signs Temp Pulse Pulse Pulse Resp BP BP 03/12/19 20:43 68 03/12/19 20:00 36.6 C 67 20 160/58 H 03/12/19 19:30 36.5 C 55 L 20 165/80 H 03/12/19 19:22 36.4 C L 84 18 181/73 H 03/12/19 18:38 36.5 C 55 L 17 165/80 H 03/12/19 18:00 36.6 C 54 L 20 155/52 H 03/12/19 17:40 36.3 C L 58 L 18 152/87 H 03/12/19 17:30 56 L 21 170/78 H 03/12/19 17:20 59 L 14 161/82 H 03/12/19 17:10 60 17 172/79 H 03/12/19 17:01 36.5 C 67 16 160/91 H 03/12/19 15:10 36.9 C 76 18 160/83 H Pulse Ox 03/12/19 20:43 03/12/19 20:00 98 03/12/19 19:30 98 03/12/19 19:22 92 03/12/19 18:38 98 03/12/19 18:00 96 03/12/19 17:40 97 03/12/19 17:30 97 03/12/19 17:20 100 03/12/19 17:10 100 03/12/19 17:01 97 03/12/19 15:10 98 Laboratory Results Laboratory Results - last 24 hr 03/11/19 03/12/19 03/12/19 21:01 05:16 05:16 WBC 7.49 RBC 4.70 Hgb 14.5 Hct 43.4 MCV 92.3 MCH 30.9 MCHC 33.4 RDW Std Deviation 46.9 H RDW Coeff of Idris 13.9 Plt Count 218 MPV 10.1 Immature Gran % (Auto) 0.1 Neut % (Auto) 58.0 Lymph % (Auto) 33.0 [place] % (Auto) 8.1 Eos % (Auto) 0.5 Baso % (Auto) 0.3 Immature Gran # (Auto) 0.01 Neut # (Auto) 4.34 Lymph # (Auto) 2.47 [place] # (Auto) 0.61 H Eos # (Auto) 0.04 Baso # (Auto) 0.02 Sodium 138 Potassium 4.0 Chloride 105 Carbon Dioxide 24 Anion Gap 9.0 BUN 12 Creatinine 1.17 Est Cr Clr Drug Dosing 63.8 Est GFR ( Amer) 69.3 Est GFR (Non-Af Amer) 59.8 BUN/Creatinine Ratio 10.3 Glucose 142 H Estimat Average Glucose Hemoglobin A1c Calcium 9.4 Magnesium Total Bilirubin 6.3 H 6.2 H Direct Bilirubin 3.8 H AST 90 H 78 H ALT 212 H 185 H Alkaline Phosphatase 267 H 240 H Total Protein 7.8 7.1 Albumin 3.9 3.3 L Globulin 3.9 Albumin/Globulin Ratio 1.0 Lipase 70 L Urine Color Urine Appearance Urine pH Ur Specific Jean Urine Protein Urine Glucose (UA) Urine Ketones Urine Blood Urine Nitrite Urine Bilirubin Urine Urobilinogen Ur Leukocyte Esterase 03/12/19 03/12/19 03/12/19 05:16 05:16 Unknown WBC RBC Hgb Hct MCV MCH MCHC RDW Std Deviation RDW Coeff of Idris Plt Count MPV Immature Gran % (Auto) Neut % (Auto) Lymph % (Auto) [place] % (Auto) Eos % (Auto) Baso % (Auto) Immature Gran # (Auto) Neut # (Auto) Lymph # (Auto) [place] # (Auto) Eos # (Auto) Baso # (Auto) Sodium 139 Potassium 3.9 Chloride 107 Carbon Dioxide 25 Anion Gap 7.0 BUN 9 Creatinine 1.02 Est Cr Clr Drug Dosing 73.3 Est GFR ( Amer) 81.8 Est GFR (Non-Af Amer) 70.6 BUN/Creatinine Ratio 9.1 L Glucose 109 H Estimat Average Glucose 123 Hemoglobin A1c 5.9 H Calcium 8.5 Magnesium 2.2 Total Bilirubin Direct Bilirubin AST ALT Alkaline Phosphatase Total Protein Albumin Globulin Albumin/Globulin Ratio Lipase Urine Color Dark Yellow Urine Appearance Clear Urine pH 5.0 Ur Specific Jean 1.039 H Urine Protein Negative Urine Glucose (UA) Negative Urine Ketones Trace H Urine Blood Negative Urine Nitrite Negative Urine Bilirubin 2+ H Urine Urobilinogen Negative Ur Leukocyte Esterase Negative (1) Biliary calculus with acute cholecystitis Biliary obstruction: with biliary obstruction Qualified Code(s): K80.01 - Calculus of gallbladder with acute cholecystitis with obstruction
[2019-03-13] MEDS: SODIUM CHLORIDE 0.9% 1000ML 1,000 ML IV SCH ×2 (04:23→15:59)
[2019-03-13] MEDS: PIPERACILLIN/TAZOBACTAM 3.375 GM in DEXTROSE 5% 100 ML IV SCH ×3 (04:23→19:47)
[2019-03-13 06:40] LABS: Hematocrit (blood only) 38.3 % (42-52); Hemoglobin 12.9 g/dL (14.0-18.0); Mean Corpuscular Hgb Conc 33.7 g/dL (32-36); Mean Corpuscular Volume 90.8 fL (80-100); Mean Platelet Volume 9.6 fL (7.4-10.4); Platelet Count 183 K/uL (130-400); RDW Standard Deviation 46.4 fL (36.4-46.3); Red Blood Count 4.22 M/uL (4.7-6.1); White Blood Count 7.86 K/uL (4.8-10.8)
[2019-03-13 07:34] LABS: Albumin Level 2.9 gm/dl (3.4-5.0); BUN Creatinine Ratio 8.7 (10-20); Bilirubin Direct 1.5 mg/dl (0-0.2); Bilirubin,Total 3.6 mg/dl (0.2-1); Calcium 8.5 mg/dl (8.5-10.1); Creatinine Clr Calc Pharmacy 75.8 ml/min; Est GFR (African American) 85.8; Est GFR (Non-African American) 74.1; Potassium 3.9 mmol/L (3.5-5.1); Total Protein 6.3 gm/dl (6.4-8.2)
--- NOTE | 2019-03-13 08:21 | Surgery Progress Note ---
Date of Service March 13, 2019 Assessment & Plan (1) Biliary calculus with acute cholecystitis: 78 yo male who presents with acute cholecystitis and choledocholithiasis who is s/p ERCP. - OR today for laparoscopic, possible open, cholecystectomy. Consent obtained (see below). - IVF - NPO - Abx precision jig grinder Risks, benefits, goals, complications, post-op expectations, limitations, and alternatives were discussed with the patient and his family. Risks include, but are not limited to, pain, scarring, bleeding and associated problems, infection, heart attack, breathing problems including required intubation post-operatively, stroke, blood clots including deep vein thrombosis and pulmonary embolism, injury to surrounding tissues or organs, , need for additional procedures, injury to bile ducts, bile leak, abscess, seroma, hematoma, hernia, diarrhea and failure of symptom resolution. All questions were answered to apparent satisfaction. The patient freely signed consent. (2) Choledocholithiasis: Subjective Pain has greatly improved today. Denies any nausea. Has been NPO. ERCP completed yesterday. Physical Exam Constitutional: no acute distress Respiratory: normal respiratory effort Cardiovascular: Rate/Rhythm: regular rate and regular rhythm Gastrointestinal (Abdomen): soft, non-distended, mild RUQ tenderness Results & Data Vital Signs (Past 12 Hours) Vital Signs Temp Pulse Pulse Resp BP Pulse Ox 03/13/19 07:29 36.7 C 53 L 18 131/73 96 03/13/19 03:00 36.6 C 63 18 154/75 H 96 03/13/19 00:00 36.5 C 54 L 58 L 20 166/75 H 96 03/12/19 20:43 68 Laboratory Results 03/13/19 03/13/19 03/12/19 Range/Units 06:25 06:25 Unknown WBC 7.86 (4.8-10.8) K/uL RBC 4.22 L (4.7-6.1) M/uL Hgb 12.9 L (14.0-18.0) g/dL Hct 38.3 L (42-52) % MCV 90.8 (80-100) fL MCH 30.6 (25-34) pg MCHC 33.7 (32-36) g/dL RDW Std Deviation 46.4 H (36.4-46.3) fL RDW Coeff of Idris 14.0 (11.5-14.5) % Plt Count 183 (130-400) K/uL MPV 9.6 (7.4-10.4) fL Sodium 142 (136-145) mmol/L Potassium 3.9 (3.5-5.1) mmol/L Chloride 108 H (98-107) mmol/L Carbon Dioxide 28 (21-32) mmol/L Anion Gap 6.0 (3-11) BUN 9 (7-18) mg/dl Creatinine 0.98 (0.6-1.4) mg/dl Est Cr Clr Drug Dosing 75.8 ml/min Est GFR ( Amer) 85.8 Est GFR (Non-Af Amer) 74.1 BUN/Creatinine Ratio 8.7 L (10-20) Glucose 117 H (70-99) mg/dl Calcium 8.5 (8.5-10.1) mg/dl Total Bilirubin 3.6 H (0.2-1) mg/dl Direct Bilirubin 1.5 H D (0-0.2) mg/dl AST 65 H (15-37) U/L ALT 147 H (12-78) U/L Alkaline Phosphatase 204 H (45-117) U/L Total Protein 6.3 L (6.4-8.2) gm/dl Albumin 2.9 L (3.4-5.0) gm/dl Urine Color Dark Yellow Urine Appearance Clear (Clear) Urine pH 5.0 (4.5-7.5) Ur Specific [place] 1.039 H (1.000-1.030) Urine Protein Negative (Negative) Urine Glucose (UA) Negative (Negative) Urine Ketones Trace H (Negative) Urine Blood Negative (Negative) Urine Nitrite Negative (Negative) Urine Bilirubin 2+ H (Negative) Urine Urobilinogen Negative (Negative) Ur Leukocyte Esterase Negative (Negative) (1) Biliary calculus with acute cholecystitis Biliary obstruction: with biliary obstruction Qualified Code(s): K80.01 - Calculus of gallbladder with acute cholecystitis with obstruction
--- NOTE | 2019-03-13 08:47 | Anesthesiology Consultation ---
Date of Service March 13, 2019 Assessment & Plan (1) Encounter for pre-operative examination: Chart Review Chart Review: Acceptable Risk for Surgery NPO Date Last Intake of Fluids: 03/12/19 Time Last Intake of Fluids: 19:00 Last Intake of Fluids Comment: ice chips Date Last Intake of Solids: 03/12/19 Time Last Intake of Solids: 19:00 History Surgery Operation Date: 03/12/19 12:40 Proposed Procedures p Endoscopic Retrograde Cholangiopancreato - Anette Dickerson MD Operation Date: 03/13/19 07:00 Proposed Procedures p Laparoscopic Cholecystectomy, Possible Open - Kavitha Miller MD Height/Weight Height: 6 ft Weight: 95.9 kg Allergies Allergy/AdvReac Type Severity Reaction Status Date / Time niacin Allergy Mild LUMPS ALL Verified 03/13/19 08:35 OVER WITH HIGH DOSES [id number] Reductase Allergy Unknown MUSCLE Verified 03/13/19 08:35 Inhibitor ACHES WHEN TAKING FOR LONG TIME Medications Home Medications Medication Instructions Recorded Confirmed Last Taken alirocumab [Praluent Pen] 0 mg SUBCUT DIRECTED 03/11/19 03/11/19 Unknown aspirin [Aspirin Low Dose] 81 mg PO DAILY 03/11/19 03/11/19 03/11/19 calcium carbonate [Calcium 500] 500 mg PO BID 03/11/19 03/11/19 03/11/19 cholecalciferol (vitamin D3) 1,000 unit PO DAILY 03/11/19 03/11/19 03/11/19 [Vitamin D3] coenzyme Q10 [Co Q-10] 200 mg PO DAILY 03/11/19 03/11/19 03/11/19 ezetimibe 10 mg PO DAILY 03/11/19 03/11/19 03/11/19 multivitamin 1 tab PO DAILY 03/11/19 03/11/19 03/11/19 pantoprazole 20 mg PO DAILY 03/11/19 03/11/19 03/11/19 ranitidine HCl 150 mg PO DAILY 03/11/19 03/11/19 03/11/19 rosuvastatin [Crestor] 10 mg PO Q OTHER DAY 03/11/19 03/11/19 Unknown Active Medications Generic Name Dose Route Start Last Admin Trade Name Freq PRN Reason Stop Dose Admin Sodium Chloride 1,000 mls @ 125 mls/hr 03/11/19 20:45 03/13/19 08:26 Nss 1000ml IV 04/10/19 20:44 0 mls/hr .Q8H MAGDA Infusion Famotidine 20 mg/ Syringe 5 mls @ 2.5 mls/min 03/12/19 09:00 03/12/19 20:53 IV 04/11/19 08:59 2.5 mls/min BID MAGDA Administration Piperacillin Sod/Tazobactam 115 mls @ 28.75 mls/hr 03/12/19 04:00 03/13/19 08:26 Sod 3.375 gm/ Dextrose IV 03/22/19 03:59 Infused Q8H MAGDA Infusion Protocol Morphine Sulfate 3 mg 03/12/19 01:17 03/12/19 20:12 Morphine Sulfate IV 03/26/19 01:16 3 mg Q3H PRN Administration Pain Past Medical History Medical History BPH (benign prostatic hyperplasia) Dyslipidemia GERD (gastroesophageal reflux disease) IFG (impaired fasting glucose) ELIEL (obstructive sleep apnea) Past Family History Family History Mother Coronary heart disease Brother Coronary heart disease Father Prostate cancer Past Surgical History Surgical History Hx of tonsillectomy Past Anesthesia History No Hx of Anesthesia Complications History of PONV No Motion Sickness Screening History of Motion Sickness: No Social History Smoking Status: Never smoker Hx Alcohol Use: No Hx Substance Use: No Physical Exam Vital Signs Last Vital Signs Temp 36.7 C 03/13/19 08:22 Pulse 66 03/13/19 08:22 Resp 20 03/13/19 08:22 BP 157/75 H 03/13/19 08:22 Pulse Ox 97 03/13/19 08:22 Testing Electrocardiogram Date: 03/12/19 Findings: + SB @ (56) Laboratory Results 03/13/19 06:25 03/13/19 06:25 PT 10.7 Seconds (9.0-12.0) 03/11/19 21:01 INR 1.0 (0.9-1.1) 03/11/19 21:01 Hemoglobin A1c 5.9 % (4.5-5.6) H 03/12/19 05:16 Urine Color Dark Yellow 03/12/19 Unknown Urine Appearance Clear (Clear) 03/12/19 Unknown Urine pH 5.0 (4.5-7.5) 03/12/19 Unknown Ur Specific [place] 1.039 (1.000-1.030) H 03/12/19 Unknown Urine Protein Negative (Negative) 03/12/19 Unknown Urine Glucose (UA) Negative (Negative) 03/12/19 Unknown Urine Ketones Trace (Negative) H 03/12/19 Unknown Urine Nitrite Negative (Negative) 03/12/19 Unknown Ur Leukocyte Esterase Negative (Negative) 03/12/19 Unknown
[2019-03-13] MEDS ORDERED: PROPOFOL IV EMULSION 10 MG/ML 20 ML VIAL IV ONE ×2 (08:53→11:48)
[2019-03-13] MEDS ORDERED: GLYCOPYRROLATE 0.2 MG/ML VIAL ONE ×2 (08:53→11:50)
[2019-03-13] MEDS ORDERED: NEOSTIGMINE METHYLSULFATE 5 MG/5 ML SYR ONE (08:53)
[2019-03-13] MEDS ORDERED: DEXAMETHASONE SOD INJ 4 MG/ML VIAL ONE (08:53)
[2019-03-13] MEDS ORDERED: fentaNYL citrate 100 MCG/2 ML VIAL ONE (08:53)
[2019-03-13] MEDS ORDERED: LIDOCAINE HCL 2% 2 ML VIAL/AMP(20MG/ML) INFIL ONE (08:53)
[2019-03-13] MEDS ORDERED: ONDANSETRON INJ 2 MG/ML 2 ML VIAL ONE (08:53)
[2019-03-13] MEDS ORDERED: BUPIVACAINE/EPINEPHRINE 0.25% 1:200,000 30 ML VIAL ONE (09:14)
[2019-03-13] MEDS ORDERED: ePHEDrine sulfate 50 MG/ML SYR ONE (10:09)
--- NOTE | 2019-03-13 10:16 | Progress Note ---
Date of Service March 13, 2019 Supervising Physician Co-Signing Physician Notes I have discussed the management with GEETA Lester and agree with her assessment and plan. Subjective Pt not in room x 2 attempts LFTs improving post ERCP Please recall GI if needed OP ERCP for stent removal will be arranged Results & Data Vital Signs (Past 12 Hours) Vital Signs Temp Pulse Pulse Resp BP BP Pulse Ox 03/13/19 08:22 36.7 C 66 20 157/75 H 97 03/13/19 07:29 36.7 C 53 L 18 131/73 96 03/13/19 03:00 36.6 C 63 18 154/75 H 96 03/13/19 00:00 36.5 C 54 L 58 L 20 166/75 H 96
[2019-03-13] MEDS ORDERED: ROCURONIUM BROMIDE 10 MG/ML 5 ML VIAL ONE (11:41)
[2019-03-13] MEDS ORDERED: BUPIVACAINE/EPINEPHRINE 0.25% 1:200,000 30 ML VIAL INJ ONE (11:55)
--- NOTE | 2019-03-13 12:05 | Operative Report ---
Post Operative Report Pre & Post Diagnosis Operation Date: 03/13/19 07:00 Pre-Op Diagnosis: Acute calculus cholecystitis, choledocholithiasis Post-Op Diagnosis: Same Procedure Operation Date: 03/13/19 07:00 Actual Procedures p Laparoscopic Cholecystectomy(Not Applicable) - Kavitha Miller MD Surgeon Kavitha Miller MD [employer] Tech Thelma Oropeza PA-C Estimated Blood Loss 10 Findings Consistent with Post-Op Diagnosis Fluids 1400 mL Specimens Gallbladder to Pathology Anesthesia Type General Description of Procedure History and Indications: Pt is an 78 year old male who presented with cholecystitis and choledocholithiasis who is s/p ERCP. A discussion was had with the patient about risks, benefits, and alternatives to surgery. Risks included, but are not limited to, injury to the bile ducts, bile leak, abscess, hernia, retained stone, needing to convert to an open procedure, bleeding, infection, SC, stroke, , and need for prolonged intubation. After discussion, and all questions were answered to apparent satisfaction, the patient freely signed consent to proceed with laparoscopic, possible open, cholecystectomy. Description of Procedure: The patient was taken to the operating room and placed in the supine position. Emily-operative antibiotics were administered and SCDs were on and working. General anesthesia was induced. A timeout was held confirming the correct patient, procedure, and necessary equipment. An OG tube was placed. The abdomen was prepped and draped in the usual sterile fashion. An incision was made above the umbilicus. The fascia was elevated and incised. The peritoneum was elevated and incised. Entry into the peritoneum was confirmed visually and no bowel was noted in the vicinity of the incision. The Malcolm cannula was inserted. The abdomen was insufflated with carbon dioxide. The patient tolerated insufflation well. The laparoscope was inserted and the abdomen inspected. No injuries from initial trocar placement were noted. The patient was placed in reverse Trendelenburg and tilted slightly to the left. Additional trocars were then inserted in the following locations: a 5 mm trocar in the epigastrium and two 5 mm trocars along the right costal margin. The gallbladder was thickened and intra-hepatic. The gallbladder easily peeled partially off of the gallbladder fossa. The dome of the gallbladder was grasped with an atraumatic grasper through the lateral port and retracted over the dome of the liver. The infundibulum was also grasped with an atraumatic grasper and retracted laterally. The peritoneum overlying the gallbladder infundibulum was incised and the cystic duct and cystic artery were identified and circumferentially dissected. The critical view of safety was visualized. The cystic duct and cystic artery were then doubly clipped on the staying side and singly on the specimen side, then divided with scissors. The cystic duct was dilated and thus was clipped with a manually loaded (orange) clip. In order to due this the epigastric port was switched to an 12 mm trocar. The gallbladder was then dissected from its peritoneal attachments by electrocautery. Hemostasis was checked. The gallbladder was placed in an endoscopic retrieval bag. The gallbladder fossa was irrigated. Hemostasis obtained. There was no evidence of bleeding from the gallbladder fossa or cystic duct artery or leakage of the bile from the cystic duct stump. Secondary trocars were removed under direct visualization. No bleeding was noted. The laparsocope and Malcolm cannula were withdrawn. The specimen within the endoscopic retrieval bag was removed from the peritoneal cavity and sent to Pathology. A safety pause was held confirming specimens. The fascia of the midline Malcolm trocar site was closed with three [id number] 0 vicryl sutures. The fascia of the epigastric trocar site was closed with a fi [id number] 0 vicryl suture. The skin was closed with subcuticular sutures of 4-0 Monocryl and Dermabond was applied to the incisions. All counts were reported as correct. The OG tube was removed. The patient was extubated and transferred to the recovery room in stable condition. I attest to the content of the Intraoperative Record and any orders documented therein. Any exceptions are noted below.
[2019-03-13] MEDS ORDERED: SUCCINYLCHOLINE CHLORIDE 20 MG/ML 10 ML VIAL ONE (12:35)
[2019-03-13] MEDS ORDERED: ATROPINE SULFATE 0.1 MG/ML 10ML SYR IV PRN (12:43)
[2019-03-13] MEDS ORDERED: HYDROmorphone INJ 1 MG/ML SYRINGE IV PRN (12:43)
[2019-03-13] MEDS ORDERED: LABETALOL HCL IV 5 MG/ML 20ML IV PRN (12:43)
[2019-03-13] MEDS ORDERED: ONDANSETRON INJ 2 MG/ML 2 ML VIAL IV PRN (12:43)
[2019-03-13] MEDS ORDERED: KETOROLAC TROMETHAMINE 15 MG/ML VIAL IV PRN (12:43)
--- NOTE | 2019-03-13 12:55 | Anesthesiology Progress Note ---
Date of Service March 13, 2019 Anesthesia Post Procedure Vital Signs Vital Signs: Temp Pulse Pulse Pulse Pulse Resp BP 03/13/19 12:50 71 18 141/70 H 03/13/19 12:40 73 18 145/73 H 03/13/19 12:30 74 19 143/70 H 03/13/19 12:23 36.9 C 77 14 131/67 03/13/19 08:22 36.7 C 66 20 03/13/19 07:29 36.7 C 53 L 18 131/73 03/13/19 03:00 36.6 C 63 18 154/75 H 03/13/19 00:00 36.5 C 54 L 58 L 20 166/75 H 03/12/19 20:43 68 03/12/19 20:00 36.6 C 67 20 03/12/19 19:30 36.5 C 55 L 20 03/12/19 19:22 36.4 C L 84 18 181/73 H 03/12/19 18:38 36.5 C 55 L 17 03/12/19 18:00 36.6 C 54 L 20 03/12/19 17:40 36.3 C L 58 L 18 152/87 H 03/12/19 17:30 56 L 21 170/78 H 03/12/19 17:20 59 L 14 161/82 H 03/12/19 17:10 60 17 172/79 H 03/12/19 17:01 36.5 C 67 16 160/91 H 03/12/19 15:10 36.9 C 76 18 160/83 H BP Pulse Ox 03/13/19 12:50 98 03/13/19 12:40 98 03/13/19 12:30 98 03/13/19 12:23 98 03/13/19 08:22 157/75 H 97 03/13/19 07:29 96 03/13/19 03:00 96 03/13/19 00:00 96 03/12/19 20:43 03/12/19 20:00 160/58 H 98 03/12/19 19:30 165/80 H 98 03/12/19 19:22 92 03/12/19 18:38 165/80 H 98 03/12/19 18:00 155/52 H 96 03/12/19 17:40 97 03/12/19 17:30 97 03/12/19 17:20 100 03/12/19 17:10 100 03/12/19 17:01 97 03/12/19 15:10 98 Pain Intensity Abdomen: Pain Intensity: 0 Notes Mental Status: alert / awake / arousable Patient Amnestic to Procedure: Yes Nausea / Vomiting: adequately controlled Pain: adequately controlled Airway Patency, RR, SpO2: stable & adequate BP & HR: stable & adequate Hydration State: stable & adequate Anesthetic Complications: no major complications apparent
[2019-03-13] MEDS ORDERED: OXYCODONE HCL IR 5 MG TAB (IMMEDIATE RELEASE) PO PRN ×2 (13:01)
[2019-03-13] MEDS: MoRPHine SULFATE 4 MG/ML 1 ML CARP\\VIAL IV PRN ×2 (13:21→17:06)
[2019-03-13] MEDS: FAMOTIDINE 20 MG in SYRINGE 3 ML IV SCH ×2 (13:29→20:47)
--- NOTE | 2019-03-13 18:20 | Hospitalist Progress Note ---
Date of Service March 13, 2019 Assessment & Plan (1) Biliary calculus with acute cholecystitis: Present on admission with abdominal pain CT abd/pelvis showed Multiple gallstones with mild inflammatory change surrounding the gallbladder and common bile duct. This is consistent with acute cholecystitis. There is a 4 mm stone within the ampulla likely resulting in the mild intrahepatic bile duct dilatation. Gallbladder U/S showed gallbladder is completely filled gallstones and there is mild gallbladder wall thickening S/P ERCP done on 03/12 by GI showed stone causing an obstruction. Choledocholithiasis was found. Complete removal was accomplished by biliary sphincterotomy and balloon extraction. One plastic stent was placed into the common bile duct. Repeat ERCP in 4 - 8 weeks to remove stent. S/P Laparoscopic Cholecystectomy performed today by Kavitha Miller MD No Post op complication Tolerated clear liquid diet Continue Pain control (2) GERD (gastroesophageal reflux disease): On famotidine. (3) IFG (impaired fasting glucose): BS stable (4) DVT prophylaxis: SCD's/ Ambulate. (5) Discharge planning issues: Possible discharge home in tomorrow Internal Medicine follow-up with Dr. Wren. Subjective Pt was seen and examined Lying in bed with no distress Pt said that he feels OK He said that pain control Tolerated clear liquid diet Denies any chest pain, palpitation, dizziness and SOB Physical Exam Physical Exam: General- No acute distress Head- atraumatic Eyes- PERRL, EOMI, ENT- oropharynx clear Neck- supple, no JVD Lungs- clear to auscultation Heart- regular rhythm; no murmur Abdomen- normal bowel sounds, +tender Extremities- no calf tenderness Neuro- alert, oriented x 3; PERRL, EOMI; no facial palsy; no dysarthria Skin- warm & dry Results & Data Vital Signs (Past 12 Hours) Vital Signs Temp Pulse Pulse Pulse Resp BP BP 03/13/19 16:00 36.5 C 76 18 122/73 03/13/19 15:00 36.5 C 80 18 144/73 H 03/13/19 14:00 36.6 C 69 18 137/72 03/13/19 13:45 36.6 C 68 18 142/77 H 03/13/19 13:12 36.6 C 72 20 148/73 H 03/13/19 13:00 36.2 C L 73 18 128/80 03/13/19 12:50 71 18 141/70 H 03/13/19 12:40 73 18 145/73 H 03/13/19 12:30 74 19 143/70 H 03/13/19 12:23 36.9 C 77 14 131/67 03/13/19 08:22 36.7 C 66 20 157/75 H 03/13/19 07:29 36.7 C 53 L 18 131/73 Pulse Ox 03/13/19 16:00 98 03/13/19 15:00 95 03/13/19 14:00 93 03/13/19 13:45 94 03/13/19 13:12 91 03/13/19 13:00 98 03/13/19 12:50 98 03/13/19 12:40 98 03/13/19 12:30 98 03/13/19 12:23 98 03/13/19 08:22 97 03/13/19 07:29 96 (1) Biliary calculus with acute cholecystitis Biliary obstruction: with biliary obstruction Qualified Code(s): K80.01 - Calculus of gallbladder with acute cholecystitis with obstruction
[2019-03-14] MEDS: SODIUM CHLORIDE 0.9% 1000ML 1,000 ML IV SCH ×2 (00:01→07:24)
[2019-03-14] MEDS: PIPERACILLIN/TAZOBACTAM 3.375 GM in DEXTROSE 5% 100 ML IV SCH ×2 (03:48→12:16)
[2019-03-14 06:18] LABS: Hematocrit (blood only) 36.4 % (42-52); Hemoglobin 12.1 g/dL (14.0-18.0); Immature Granulocytes # (auto) 0.03 K/uL (0.00-0.02); Immature Granulocytes % (auto) 0.2 %; Lymphocytes # (auto) 1.43 K/uL (1.2-3.4); Lymphocytes % (auto) 11.1 %; Mean Corpuscular Hgb Conc 33.2 g/dL (32-36); Mean Corpuscular Volume 91.5 fL (80-100); Mean Platelet Volume 9.9 fL (7.4-10.4); Monocytes # (auto) 1.05 K/uL (0.11-0.59); Monocytes % (auto) 8.2 %; Neutrophils # (auto) 10.36 K/uL (1.4-6.5); Neutrophils % (auto) 80.5 %; Platelet Count 196 K/uL (130-400); RDW Coefficient of Variation 14.1 % (11.5-14.5); RDW Standard Deviation 47.3 fL (36.4-46.3); Red Blood Count 3.98 M/uL (4.7-6.1); White Blood Count 12.87 K/uL (4.8-10.8)
[2019-03-14 06:45] LABS: Albumin Level 2.8 gm/dl (3.4-5.0); BUN Creatinine Ratio 11.8 (10-20); Calcium 8.2 mg/dl (8.5-10.1); Est GFR (African American) 86.9; Potassium 4.1 mmol/L (3.5-5.1)
[2019-03-14 06:50] LABS: Albumin Globulin Ratio 0.8 (0.9-2); Bilirubin,Total 2.2 mg/dl (0.2-1); Globulin 3.4 gm/dl (2.5-4.0); Total Protein 6.2 gm/dl (6.4-8.2)
[2019-03-14] MEDS: FAMOTIDINE 20 MG in SYRINGE 3 ML IV SCH (09:34)
--- NOTE | 2019-03-14 14:48 | Surgery Progress Note ---
Date of Service March 14, 2019 Assessment & Plan (1) Acute cholecystitis: Pt is a 78 yo male admitted with acute cholecystitis and choledocholithiasis. He is s/p ERCP with stent placement and laparoscopic cholecystectomy. AST and ALT are slightly elevated compared to yesterday, which is not unexpected post-operatively, and remainder of LFTs continue to trend downward. - Okay to discharge home today - F/u in general surgery clinic in 2 weeks - Repeat LFTs in 1-2 weeks - Biliary stent management per GI - No lifting/pushing/pulling > 10 pounds for 4 weeks post-op - Okay to shower, allowing soap and water to run over incisions, but do not scrub - Do not soak in standing bodies of water such as bathtubes, hot tubs, pools, and lakes for 2 weeks post-op - Take stool softener, especially while on narcotics - Do not drive until off narcotics and can firmly push foot on the break and turn body without pain (2) Choledocholithiasis: Subjective Patient reports mild pain. Denies nausea. Has tolerated a diet. Physical Exam Constitutional: no acute distress Respiratory: normal respiratory effort Cardiovascular: Rate/Rhythm: regular rate and regular rhythm Gastrointestinal (Abdomen): soft, nondistended, appropriately tender, incisions clean/dry/intact, with Dermabond overlying incisions; no erythema or edema Results & Data Vital Signs (Past 12 Hours) Vital Signs Temp Pulse Resp BP BP Pulse Ox 03/14/19 14:01 36.7 C 62 18 154/70 H 131/68 97 03/14/19 11:34 36.7 C 62 18 131/68 97 03/14/19 07:27 36.5 C 64 18 154/70 H 95 03/14/19 03:15 36.7 C 66 18 139/69 94 Laboratory Results 03/14/19 03/14/19 Range/Units 05:44 05:44 WBC 12.87 H (4.8-10.8) K/uL RBC 3.98 L (4.7-6.1) M/uL Hgb 12.1 L (14.0-18.0) g/dL Hct 36.4 L (42-52) % MCV 91.5 (80-100) fL MCH 30.4 (25-34) pg MCHC 33.2 (32-36) g/dL RDW Std Deviation 47.3 H (36.4-46.3) fL RDW Coeff of Idris 14.1 (11.5-14.5) % Plt Count 196 (130-400) K/uL MPV 9.9 (7.4-10.4) fL Immature Gran % (Auto) 0.2 % Neut % (Auto) 80.5 % Lymph % (Auto) 11.1 % [place] % (Auto) 8.2 % Eos % (Auto) 0.0 % Baso % (Auto) 0.0 % Immature Gran # (Auto) 0.03 H (0.00-0.02) K/uL Neut # (Auto) 10.36 H (1.4-6.5) K/uL Lymph # (Auto) 1.43 (1.2-3.4) K/uL [place] # (Auto) 1.05 H (0.11-0.59) K/uL Eos # (Auto) 0.00 (0-0.5) K/uL Baso # (Auto) 0.00 (0-0.2) K/uL Sodium 139 (136-145) mmol/L Potassium 4.1 (3.5-5.1) mmol/L Chloride 108 H (98-107) mmol/L Carbon Dioxide 28 (21-32) mmol/L Anion Gap 3.0 (3-11) BUN 11 (7-18) mg/dl Creatinine 0.97 (0.6-1.4) mg/dl Est Cr Clr Drug Dosing 77.0 ml/min Est GFR ( Amer) 86.9 Est GFR (Non-Af Amer) 75.0 BUN/Creatinine Ratio 11.8 (10-20) Glucose 123 H (70-99) mg/dl Calcium 8.2 L (8.5-10.1) mg/dl Total Bilirubin 2.2 H (0.2-1) mg/dl AST 129 H (15-37) U/L ALT 199 H (12-78) U/L Alkaline Phosphatase 183 H (45-117) U/L Total Protein 6.2 L (6.4-8.2) gm/dl Albumin 2.8 L (3.4-5.0) gm/dl Globulin 3.4 (2.5-4.0) gm/dl Albumin/Globulin Ratio 0.8 L (0.9-2)
--- NOTE | 2019-03-14 20:13 | Hospitalist Progress Note ---
Date of Service March 14, 2019 Assessment & Plan (1) Biliary calculus with acute cholecystitis: Present on admission with abdominal pain CT abd/pelvis showed Multiple gallstones with mild inflammatory change surrounding the gallbladder and common bile duct. This is consistent with acute cholecystitis. There is a 4 mm stone within the ampulla likely resulting in the mild intrahepatic bile duct dilatation. Gallbladder U/S showed gallbladder is completely filled gallstones and there is mild gallbladder wall thickening S/P ERCP done on 03/12 by GI showed stone causing an obstruction. Choledocholithiasis was found. Complete removal was accomplished by biliary sphincterotomy and balloon extraction. One plastic stent was placed into the common bile duct. Repeat ERCP in 4 - 8 weeks to remove stent. S/P Laparoscopic Cholecystectomy performed 03/13 by Kavitha Miller MD case discussed with GI and Surgery No Post op complication Diet advanced and tolerated Continue Pain control OK from Surgery standpoint to discharge home Follow up with surgery in 2 weeks (2) Elevated LFTs: AST 90 and ALT 212 on admission Liver enzymes trending down then trending back up Elevated liver enzymes due to the recent Laparascopy procedure Since pt is very anxious to go home, will discharge Follow up with GI for repeat ERCP Check LFT in 1-2 weeks (3) GERD (gastroesophageal reflux disease): Continue famotidine. (4) IFG (impaired fasting glucose): BS stable (5) DVT prophylaxis: On SCds/ Ambulate. 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 Denies any chest pain, palpitation, dizziness and SOB Physical Exam Physical Exam: General- No acute distress Head- atraumatic Eyes- PERRL, EOMI, ENT- oropharynx clear Neck- supple, no JVD Lungs- clear to auscultation Heart- regular rhythm; no murmur Abdomen- normal bowel sounds, +tender Extremities- no calf tenderness Neuro- alert, oriented x 3; PERRL, EOMI; no facial palsy; no dysarthria Skin- warm & dry Results & Data Vital Signs (Past 12 Hours) Vital Signs Temp Pulse Resp BP BP Pulse Ox 03/14/19 14:01 36.7 C 62 18 154/70 H 131/68 97 03/14/19 11:34 36.7 C 62 18 131/68 97 (1) Biliary calculus with acute cholecystitis Biliary obstruction: with biliary obstruction Qualified Code(s): K80.01 - Calculus of gallbladder with acute cholecystitis with obstruction
--- NOTE | 2019-03-22 23:59 | Discharge Summary ---
Date of Service March 14, 2019 Admission HPI Per Admitting Provider 78M with PMH significant for Hyperlipidemia, Impaired fasting glucose,GERD, ELIEL,BPH,presents with abdominal pain. Patient had some pain yesterday. But Today after lunch couple of hours later around 4pm again started to have abdominal pain mostly in upper abdomen radiating to the chest region, severe in nature, associated with nausea.Received pain meds in ER and currently pain is under control. Denies fever/chills. No Sob. No cough. Patient noticed his urine turning dark since yesterday.Currently resting comfortably and hemodynamically stable. Admission Exam Per Admitting Provider Constitutional- no fever; no weight loss Eyes- no acute visual changes ENT- no sinus drainage; no pharyngitis Pulmonary- no cough, no wheezing, no shortness of breath Cardiac- no chest pain, no dependent edema GI- HAS ABDOMINAL PAIN.no nausea, no vomiting, no diarrhea, no melena, no hematochezia - no dysuria, no hematuria Derm- no rashes Hematologic- no unusual bruising, no unusual bleeding Neuro- no headaches Principal Diagnosis Biliary calculus with acute cholecystitis Transaminitis Discharge Exam General- No acute distress Head- atraumatic Eyes- PERRL, EOMI, ENT- oropharynx clear Neck- supple, no JVD Lungs- clear to auscultation Heart- regular rhythm; no murmur Abdomen- normal bowel sounds, +tender Extremities- no calf tenderness Neuro- alert, oriented x 3; PERRL, EOMI; no facial palsy; no dysarthria Skin- warm & dry Discharge Data Allergies Allergy/AdvReac Type Severity Reaction Status Date / Time niacin Allergy Mild LUMPS ALL Verified 03/13/19 08:35 OVER WITH HIGH DOSES [id number]-Cec Reductase Allergy Unknown MUSCLE Verified 03/13/19 08:35 Inhibitor ACHES WHEN TAKING FOR LONG TIME Consultations 03/11/19 23:19 ED Decision to Admit Stat 03/11/19 23:20 Consult Gastroenterology Stat 03/12/19 08:00 Consult General Surgery Routine Procedures Performed Operation Date: 03/12/19 12:40 Actual Procedures p Endoscopic Retrograde Cholangiopancreatography, sphincterotomy, balloon sweep with stone removal, and biliary stent placement(Not Applicable) - Anette Dickerson MD Operation Date: 03/13/19 07:00 Actual Procedures p Laparoscopic Cholecystectomy(Not Applicable) - Kavitha Miller MD Ordered Studies 03/11/19 20:35 CT abd pelvis IV con only Stat US gallbladder Stat 03/12/19 15:30 FL ERCP biliary ductal Routine ABDOMEN AND PELVIS CT WITH IV CONTRAST CT DOSE: 660.01 mGy.cm HISTORY: epigastric pain TECHNIQUE: Multiaxial CT images of the abdomen and pelvis were performed following the use of intravenous contrast. A dose lowering technique was utilized adhering to the principles of ALARA. COMPARISON STUDY: Abdominal ultrasound 03/11/2019. FINDINGS: Calcified right hilar lymph nodes. Calcified granuloma within the lingula. Mild dependent changes seen at the lung bases. No pneumoperitoneum. No pneumatosis. No suspicious lytic or blastic osseous lesions. A 5 mm hypodense lesion within the left hepatic lobe. This is too small to characterize. The main portal vein is patent. Mild central intrahepatic bile duct dilatation. The spleen is unremarkable. Normal adrenal glands and pancreas. A 3 cm cyst within the upper pole of the left kidney. There is also a 1 cm hypodense lesion within the left kidney. This also favors a cyst. No hydronephrosis. A left circumaortic renal vein. No retroperitoneal lymphadenopathy. Normal bladder. No bowel wall thickening or obstruction. Normal appendix. No retroperitoneal lymphadenopathy. Mild inflammatory change surrounding the gallbladder and common bile duct. There is mild enhancement within the wall of the cystic duct. Multiple stones within the gallbladder. There is also a stone within the ampulla best seen on image 191. This measures 4 mm. The common bile duct is at the upper limits of normal for age measuring 7 mm. The cystic duct is mildly distended. The mass of the stone within the cystic duct. However, this is difficult to assess due to the motion artifact at this location. IMPRESSION: 1. Multiple gallstones with mild inflammatory change surrounding the gallbladder and common bile duct. This is consistent with acute cholecystitis. 2. There is a 4 mm stone within the ampulla likely resulting in the mild intrahepatic bile duct dilatation. 3. There is mild enhancement versus small stones within the cystic duct. 4. No bowel wall thickening or obstruction. 5. Normal appendix. Electronically signed by: Anthony Rivera M.D. 03/11/2019 10:48 PM Dictated: 03/11/192240 Transcribed: 03/11/192240 ABDOMINAL ULTRASOUND, RIGHT UPPER QUADRANT HISTORY: RUQ pain, jaundice. COMPARISON: None. FINDINGS: Pancreas: Obscured by overlying bowel gas. Liver: The liver is echogenic consistent with fatty change. Gallbladder: Completely filled with gallstones. Mild gallbladder wall thickening measuring 4 mm. No pericholecystic fluid. CBD: 7 mm in diameter. This is normal given the patient's age. Right kidney: No hydronephrosis. IMPRESSION: The gallbladder is completely filled gallstones and there is mild gallbladder wall thickening. This raises the possibility of developing acute cholecystitis. Electronically signed by: Anthony Rivera M.D. 03/11/2019 9:47 PM Dictated: 03/11/192145 Transcribed: 03/11/192145 XR chest 1V portable CLINICAL HISTORY: pre op preoperative evaluation COMPARISON STUDY: No previous studies for comparison. FINDINGS: The bones soft tissues and hemidiaphragms are normal. The cardiomediastinal silhouette is normal. The lungs are clear. The pulmonary vasculature is normal. IMPRESSION: Negative chest. The above report was generated using voice recognition software. It may contain grammatical, syntax or spelling errors. Electronically signed by: Luciano Lam M.D. 03/12/2019 6:18 AM Dictated: 03/12/19617 Transcribed: 03/12/19617 [place] ERCP biliary ductal CLINICAL HISTORY: R/O STONES COMPARISON STUDY: Abdomen and pelvis CT 03/11/2019. FLUOROSCOPY TIME: 1 minute and 45 seconds. FINDINGS: The below scanning contrast is injected into the common bile duct. There is a filling defect seen at the distal common bile duct consistent with a stone. A balloon sweep was performed. Contrast extends into the gallbladder to the cystic duct. A common bile duct stent was placed. IMPRESSION: Fluoroscopy provided for ERCP. Electronically signed by: Anthony Rivera M.D. 03/12/2019 5:55 PM Dictated: 03/12/[id number] Transcribed: 03/12/191749 Hospital Course (1) Biliary calculus with acute cholecystitis: Present on admission with abdominal pain CT abd/pelvis showed Multiple gallstones with mild inflammatory change surrounding the gallbladder and common bile duct. This is consistent with acute cholecystitis. There is a 4 mm stone within the ampulla likely resulting in the mild intrahepatic bile duct dilatation. Gallbladder U/S showed gallbladder is completely filled gallstones and there is mild gallbladder wall thickening S/P ERCP done on 03/12 by GI showed stone causing an obstruction. Chol edocholithiasis was found. Complete removal was accomplished by biliary sphincterotomy and balloon extraction. One plastic stent was placed into the common bile duct. Repeat ERCP in 4 - 8 weeks to remove stent. S/P Laparoscopic Cholecystectomy performed 03/13 by Kavitha Miller MD case discussed with GI and Surgery No Post op complication Diet advanced and tolerated Continue Pain control OK from Surgery standpoint to discharge home Follow up with surgery in 2 weeks (2) Elevated LFTs: AST 90 and ALT 212 on admission Liver enzymes trending down then trending back up Elevated liver enzymes due to the recent Laparascopy procedure Since pt is very anxious to go home, will discharge Follow up with GI for repeat ERCP Check LFT in 1-2 weeks (3) GERD (gastroesophageal reflux disease): Continue famotidine. (4) IFG (impaired fasting glucose): BS stable (5) DVT prophylaxis: On SCds/ Ambulate. (6) Discharge planning issues: Discharge home today Total Time Total Time Spent Total Time Spent (In Minutes): 35 minutes Total Time Includes: Examination of the Patient, Discharge Planning, Medication Reconciliation, Communication With Other Providers and Other Discharge Plan Discharge Items Patient Disposition: Home - Self-Care Reason For Visit: ABDOMINAL PAIN, Biliary Obstruction Discharge Diagnosis: Biliary calculus with acute cholecystitis Discharge Goals: Decrease discomfort, Improve disease control, Improve function and Increase independence Activity: Resume your previous activity Activity Comment: As tolerated Non-emergency contact: Primary Care Provider Call non-emergency contact if: you have any medication questions, your symptoms worsen and your temperature is above 101 Follow-up/Referrals: Milena Carr MD [Primary Care Provider] - Diet: Heart Healthy Addtl Provider Instructions: Follow up with primary care provider Dr. Wren on 03/20 @ 2:45 PM Follow up with surgery (Please call to schedule for the follow up appointment ) Follow up with Gastroenterology For the ERCP with stent removal in 4 to 6 weeks Check Liver enzymes in [address] after taking narcotic No heavy lifting over 20 until cleared by surgeon No strenuous activity until cleared by surgeon No submerging incisions underwater for 2 weeks (no swimming, bathing, hot tubs) but you may shower and gently clean the incisions with soap and water and pat dry. Walking and light activities encouraged daily to prevent blood clots from forming You will be given prescription for narcotic pain medication (tramadol) as needed for moderate severe pain. Take as directed this medication may cause drowsiness and constipation. You may take extra strength Tylenol or ibuprofen as needed for mild pain Recommend taking stool softener (Colace or dulcolax) daily while taking pain medication. Follow-up in surgical office in 1-2 weeks. Prescriptions: New tramadol 50 mg tablet 50 mg PO Q8H PRN (Reason: pain) Qty: 10 RF: 0 Continued multivitamin Tablet 1 tab PO DAILY RF: 0 aspirin [Aspirin Low Dose] 81 mg Tablet,Delayed Release (Dr/Ec) 81 mg PO DAILY RF: 0 pantoprazole 20 mg tablet,delayed release (DR/EC) 20 mg PO DAILY RF: 0 calcium carbonate [Calcium 500] 500 mg calcium (1,250 mg) Tablet 500 mg PO BID RF: 0 ranitidine HCl 150 mg tablet 150 mg PO DAILY RF: 0 ezetimibe 10 mg tablet 10 mg PO DAILY RF: 0 rosuvastatin [Crestor] 10 mg Tablet 10 mg PO Q OTHER DAY RF: 0 coenzyme Q10 [Co Q-10] 200 mg Capsule 200 mg PO DAILY RF: 0 cholecalciferol (vitamin D3) [Vitamin D3] 1,000 unit Tablet 1,000 unit PO DAILY RF: 0 Praluent Pen 75 mg/mL Pen Injector SUBCUT DIRECTED RF: 0 Stand-Alone Forms: Call Back Authorization, [facility] Discharge Orders: Discharge Order (Routine); Ordered 03/14/19 Ordered By: Surendra Ledezma Admission Data Admit Date/Time: 03/11/19 23:58 Attending Provider: Surendra Ledezma Admit Provider: Tong Rodriguez Primary Care Provider: Milena Carr Other Providers: Ray Irving ; Luciano Carrasquillo ; Linda Mckeon ; Jeane Stevens ; Kunal Rhodes ; Emerson Herrera ; Linda Ching ; Zeb Ramirez ; Igor Liang ; Rhonda Lima ; Terry Rubio ; Thelma Oropeza ; Trae Argueta Jr ; Rula Green ; Kavitha Miller ; Tong Rodriguez ; Jann Dey Service: Telemetry Medical Other Interventions: Discharge Summary Assessment (RN) Last Done: 03/14/19 14:01 DC Date/Time DO NOT enter until pt leaves facility: 03/14/19 14:46
== END 2019-03-14 14:46 | disposition home or self-care (01) | DRG 419 ==
LOC: ED 20:16 → 2N 23:58 → SUATTDRO 23:58 → 2N 03-12 00:39